=== PATIENT | male | born 1940 | race Caucasian/White ===

== ENCOUNTER → 2018-03-05 16:23 | Outpatient (CLI) | payer MEDICARE, SELFPAY ==
--- NOTE | 2018-03-05 16:30 | XR_ITS ---
XR forearm RT 2V HISTORY: Pain and swelling following injury ITS.REASON: RT FOREARM INJURY ORDERING PHYSICIAN: Tate Ordonez MD PATIENT AGE: 77 years FINDINGS: Prominent soft tissue swelling is present along the dorsal aspect of the forearm consistent with hematoma. No fracture or dislocation. There is mild exostosis along the dorsal aspect of the mid wrist nonspecific. IMPRESSION: Hematoma along the dorsal aspect of the forearm, no acute fracture
== END ==
PROVIDERS: PCP Internal Medicine Adolescent Medicine; Visit Provider Internal Medicine Adolescent Medicine
DX: S59.911A Unspecified injury of right forearm, initial encounter (principal)
CPT/HCPCS: 73090

== ENCOUNTER → 2019-04-23 10:36 | Outpatient (POV) | payer MEDICARE, SELFPAY | PROVIDERS: Visit Provider Dermatology | DX: Z00.00 Encounter for general adult medical examination without abnormal findings (principal) ==

== ENCOUNTER → 2019-05-07 10:36 | Outpatient (POV) | payer MEDICARE, SELFPAY | PROVIDERS: PCP Dermatology; Visit Provider Dermatology | DX: Z00.00 Encounter for general adult medical examination without abnormal findings (principal) ==

== ENCOUNTER → 2019-10-29 08:01 | Outpatient (POV) | payer MEDICARE, SELFPAY | PROVIDERS: PCP Internal Medicine Adolescent Medicine; Visit Provider Dermatology | DX: Z00.00 Encounter for general adult medical examination without abnormal findings (principal) ==

== ENCOUNTER → 2020-01-14 08:55 | Outpatient (POV) | payer MEDICARE, SELFPAY | PROVIDERS: Visit Provider Dermatology | DX: Z00.00 Encounter for general adult medical examination without abnormal findings (principal) ==

== ENCOUNTER → 2020-05-13 15:37 | Outpatient (CLI) | payer MEDICARE, SELFPAY ==
[2020-05-13 18:07] LABS: Coronavirus 19 IgG Antibody Negative (Negative); Coronavirus 19 IgM Antibody Negative (Negative)
== END ==
PROVIDERS: Visit Provider Internal Medicine Gastroenterology
DX: Z01.818 Encounter for other preprocedural examination (principal); Z20.822 Contact with and (suspected) exposure to COVID-19; Z13.810 Encounter for screening for upper gastrointestinal disorder; R10.13 Epigastric pain
CPT/HCPCS: 36415; 86328

== ENCOUNTER 2020-05-15 11:07 | Day surgery (SDC) | payer MEDICARE, SELFPAY ==
[2020-05-13 09:38] VITALS: BMI 29.5
[2020-05-15 11:55] VITALS: BP 166/87; PULSE 61; RESP 22; TEMP 36.6; O2SAT 97
--- NOTE | 2020-05-15 13:04 | P.PCN_ITS ---
[facility] Procedure Note Procedure Note:: Upper Endoscopy Procedure Report: Esophagogastroduodenoscopy with cold biopsies Endoscopost: Oswald Sylvester II, MD Referring Physician: Tate Ordonez M.D. Date of Procedure: May 15, 2020 Equipment: Olympus GIF 180 standard upper endoscope Sedation: MAC sedation Indications: Mr. 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 He had complete remission by February 2006. He has had routine surveillance since then and his last surveillance EGD in April 2014 showed no recurrence. Recently, he has had some intermittent indigestion and dyspepsia which is only occasional. He reports no heartburn, reflux, nausea, bloating or belching. He does have some intermittent constipation. Procedure: Prior to the procedure, a history and physical exam was performed, and patient's medications and allergies were reviewed. The risks, benefits and alternatives of the sedation and procedure were discussed with the patient. All questions were answered and informed consent was obtained. The patient was brought to the procedure room. Patient identification and proposed procedure were verified by the physician and the nurse. The patient was placed in a left lateral decubitus position and the scope was passed under direct vision. Throughout the procedure, the patient's blood pressure, pulse, and oxygen saturations were monitored continuously. The upper GI endoscopy was accomplished without difficulty. The patient tolerated the procedure well. Findings: The scope was passed directly into the upper esophagus and advanced to the third portion of the duodenum. The post bulbar duodenum and duodenal bulb were normal with normal mucosa and conniventes. The scope was withdrawn through a normal duodenal bulb and pylorus into the stomach. There was some very mild reactive gastropathy of the antrum. There was some very mild atrophy of the body and fundus. There was certainly no recurrent lesions or recurrent lymphoma. The remainder of the mucosa of the antrum, body and fundus of the stomach was grossly normal. Upon retroflexion there was no hiatal hernia. 2 biopsies were taken in the antrum and along the lesser curvature for histology to rule out gastritis and/or H pylori. The scope was then withdrawn into the esophagus. There was a serrated Z-line with a single tongue of salmon-colored mucosa that was biopsied to rule out short segment Vaughn's esophagus. There was no evidence of reflux esophagitis or Schatzki's ring. The remainder of the esophageal mucosa was normal. Impression: 1. Nonerosive GERD with single tongue of salmon-colored mucosa biopsied to rule out short segment Vaughn's esophagus 2. Mild linear reactive gastropathy and mild gastric atrophy Plan: I will follow-up the biopsies. The patient does have intermittent indigestion/dyspepsia and I would encourage dietary measures, fiber bowel r egimen daily and FDgard (when necessary).
[2020-05-15 13:06] VITALS: BP 146/76; PULSE 61; RESP 18; TEMP 36.8; O2SAT 96
[2020-05-15 13:16] VITALS: BP 141/79; PULSE 55; RESP 18; TEMP 36.8; O2SAT 97
[2020-05-15 13:26] VITALS: BP 165/81; PULSE 54; RESP 18; TEMP 36.8; O2SAT 97
[2020-05-15 13:36] VITALS: BP 156/79; PULSE 55; RESP 18; TEMP 36.8; O2SAT 98
[2020-05-15 13:55] VITALS: BP 160/82; PULSE 60; RESP 18; TEMP 36.8; O2SAT 98
== END 2020-05-15 14:00 | disposition home or self-care (01) ==
PROVIDERS: PCP Internal Medicine Adolescent Medicine; Visit Provider Internal Medicine Gastroenterology
PROC: 0DJ08ZZ Inspection of Upper Intestinal Tract, Via Natural or Artificial Opening Endoscopic (ICD-10-PCS; CPT 43235; principal; 2020-05-15 12:30)
DX: K21.9 Gastro-esophageal reflux disease without esophagitis (principal); K31.9 Disease of stomach and duodenum, unspecified; K29.40 Chronic atrophic gastritis without bleeding; Z85.72 Personal history of non-Hodgkin lymphomas; I10 Essential (primary) hypertension; E03.9 Hypothyroidism, unspecified; R56.9 Unspecified convulsions; Z79.899 Other long term (current) drug therapy
CPT/HCPCS: 43239; 88305

== ENCOUNTER → 2020-07-14 08:28 | Outpatient (POV) | payer MEDICARE, SELFPAY | PROVIDERS: Visit Provider Dermatology | DX: Z00.00 Encounter for general adult medical examination without abnormal findings (principal) ==

== ENCOUNTER → 2020-10-07 09:40 | Outpatient (CLI) | payer MEDICARE, SELFPAY ==
[2020-10-07 10:12] LABS: Basophils # 0.1 K/mm3 (0-0.2); Basophils % 1.1 % (0.1-2.0); Eosinophils # 0.3 K/mm3 (0.0-0.4); Eosinophils % 4.4 % (0.1-12.0); Hemoglobin 13.1 g/dL (14.1-18.0); Lymphocytes # 2.2 K/mm3 (0.7-4.5); Lymphocytes % 32.3 % (10-50); Mean Corpuscular HGB Conc 34.3 g/dL (31.8-35.4); Mean Corpuscular Hemoglobin 29.6 pg (27.0-31.2); Mean Corpuscular Volume 86.3 fl (80-94); Mean Platelet Volume 8.6 fl (7.4-10.4); Monocytes # 0.4 K/mm3 (0.1-1.0); Monocytes % 5.3 % (1.7-9.3); Neutrophils # 3.9 K/mm3 (1.8-7.8); Neutrophils % 56.9 % (37.0-80.0); Platelet Count 196 K/mm3 (142-424); Red Blood Count 4.41 M/mm3 (4.60-6.20); Red Cell Distribution Width 14.2 % (11.5-17.5); White Blood Count 6.8 K/mm3 (4.8-10.8)
[2020-10-07 11:00] LABS: Alanine Aminotransferase 17 U/L (12-78); Albumin Level 4.2 g/dl (3.5-5.0); Albumin/Globulin Ratio 1.6 (1.1-1.8); Alkaline Phosphatase 134 U/L (38-126); Anion Gap 10.6 mEq/L (5-15); Aspartate Amino Transferase 24 U/L (17-59); Bilirubin,Total 0.4 mg/dl (0.2-1.3); Blood Urea Nitrogen 14 mg/dl (9-20); Calcium 8.9 mg/dl (8.4-10.2); Carbon Dioxide 33 mmol/L (22.0-30.0); Chloride 102 mmol/L (98-107); Chol/HDL Ratio 2.3 (1-3.5); Cholesterol 132 mg/dl (140-200); Estimated Glomerular Filt Rate 81 ml/min (>60); GFR (African American) 98 ML/MIN (>60); Globulin 2.7 g/dL (1.3-3.2); Glucose 123 mg/dl (74-100); HDL Cholesterol 58 mg/dl (40-60); Phenytoin (Dilantin) 16.2 ug/ml (10-20); Potassium 5.6 mmoL/L (3.5-5.1); Sodium 140 mmol/L (136-145); Total Protein,Serum 6.9 g/dl (6.3-8.2); Triglycerides 108 mg/dl (30-150); VLDL Cholesterol 22 mg/dL (0-40)
[2020-10-07 11:28] LABS: Thyroid Stimulating Hormone 2.02 uIU/mL (0.465-4.68)
[2020-10-07 11:50] LABS: Vitamin B12 > 1000 pg/mL (239-931)
== END ==
PROVIDERS: Visit Provider Internal Medicine Adolescent Medicine
DX: G40.909 Epilepsy, unspecified, not intractable, without status epilepticus (principal); G60.9 Hereditary and idiopathic neuropathy, unspecified; E78.5 Hyperlipidemia, unspecified; E53.8 Deficiency of other specified B group vitamins; Z51.81 Encounter for therapeutic drug level monitoring
CPT/HCPCS: 36415; 80053; 80061; 80185; 82607; 84443; 85025

== ENCOUNTER → 2021-01-12 12:07 | Outpatient (POV) | payer MEDICARE, SELFPAY | PROVIDERS: Visit Provider Dermatology | DX: Z00.00 Encounter for general adult medical examination without abnormal findings (principal) ==

== ENCOUNTER → 2021-04-07 10:14 | Outpatient (CLI) | payer MEDICARE, SELFPAY ==
[2021-04-07 11:25] LABS: Anion Gap 9.8 mEq/L (5-15); Blood Urea Nitrogen 15 mg/dl (9-20); Calcium 9.2 mg/dl (8.4-10.2); Carbon Dioxide 33 mmol/L (22.0-30.0); Chloride 100 mmol/L (98-107); Estimated Glomerular Filt Rate 93 ml/min (>60); GFR (African American) 113 ML/MIN (>60); Glucose 126 mg/dl (74-100); Potassium 4.8 mmoL/L (3.5-5.1); Sodium 138 mmol/L (136-145)
== END ==
PROVIDERS: PCP Internal Medicine Adolescent Medicine; Visit Provider Internal Medicine Adolescent Medicine
DX: E87.5 Hyperkalemia (principal)
CPT/HCPCS: 36415; 80048; C9803; U0003; U0005

== ENCOUNTER → 2021-04-07 10:44 | Outpatient (CLI) | payer MEDICARE, SELFPAY | PROVIDERS: Visit Provider Nurse Practitioner | DX: U07.1 COVID-19 (principal) | CPT/HCPCS: C9803; U0003; U0005 ==

== ENCOUNTER → 2021-04-12 10:56 | Outpatient (CLI) | payer MEDICARE, SELFPAY | PROVIDERS: Visit Provider Nurse Practitioner | DX: U07.1 COVID-19 (principal) | CPT/HCPCS: C9803; U0003; U0005 ==

== ENCOUNTER → 2021-09-13 12:33 | Outpatient (CLI) | payer MEDICARE, SELFPAY ==
[2021-09-13 12:52] LABS: Adenovirus,PCR Not Detected (NotDetected); Bordetella Pertussis Not Detected (NotDetected); Chlamydophila Pneumoniae, PCR Not Detected (NotDetected); Coronavirus 19, PCR Not Detected (NotDetected); Coronavirus 229E Not Detected (NotDetected); Coronavirus NL63 Not Detected (NotDetected); Coronavirus OC43 Not Detected (NotDetected); Coronovirus HKU1,PCR Not Detected (NotDetected); Human Metapneumovirus Not Detected (NotDetected); Influenza A, PCR Not Detected (NotDetected); Influenza AH1, 2009 Not Detected (NotDetected); Influenza AH1, PCR Not Detected (NotDetected); Influenza AH3,PCR Not Detected (NotDetected); Influenza B, PCR Not Detected (NotDetected); MANUAL DIFFERENTIAL MANUAL DIFFERENTIAL (MANUAL DIFF); Mycoplasma Pneumoniae, PCR Not Detected (NotDetected); Parainfluenza 1, PCR Not Detected (NotDetected); Parainfluenza 2, PCR Not Detected (NotDetected); Parainfluenza 3, PCR Not Detected (NotDetected); Parainfluenza 4, PCR Not Detected (NotDetected); Respiratory Syncytial Virus Not Detected (NotDetected); Rhinovirus/Enterovirus Not Detected (NotDetected)
--- NOTE | 2021-09-13 13:02 | ECG_ITS ---
APPROVED REPORT Exam: Resting ECG HR:51 bpm ECG Measurements Heart Rate 51 AXES OK 211 P 42 QRSd 92 QRS 29 QT 463 T 44 QTc 439 Conclusion SINUS BRADYCARDIA WITH FIRST DEGREE AV BLOCK ABNORMAL ECG UNCONFIRMED REPORT Electronically signed by : Tate Ordonez MD 09/13/2021 21:42:24
[2021-09-13 13:08] LABS: Basophils # 0.1 K/mm3 (0-0.2); Basophils % 1.8 % (0.1-2.0); Eosinophils # 0.2 K/mm3 (0.0-0.4); Eosinophils % 3.1 % (0.1-12.0); Hematocrit 38.2 % (42.0-52.0); Hemoglobin 12.2 g/dL (14.1-18.0); Lymphocytes % 42.7 % (10-50); Mean Corpuscular Volume 93.9 fl (80-94); Mean Platelet Volume 9.1 fl (7.4-10.4); Monocytes # 0.3 K/mm3 (0.1-1.0); Neutrophils # 2.2 K/mm3 (1.8-7.8); Neutrophils % 46.3 % (37.0-80.0); Platelet Count 236 K/mm3 (142-424); Red Blood Count 4.07 M/mm3 (4.60-6.20); Red Cell Distribution Width 14.1 % (11.5-17.5); White Blood Count 4.7 K/mm3 (4.8-10.8)
[2021-09-13 13:42] LABS: Alanine Aminotransferase 21 U/L (12-78); Albumin Level 3.8 g/dl (3.5-5.0); Albumin/Globulin Ratio 1.5 (1.1-1.8); Alkaline Phosphatase 141 U/L (38-126); Anion Gap 9.6 mEq/L (5-15); Aspartate Amino Transferase 28 U/L (17-59); Blood Urea Nitrogen 18 mg/dl (9-20); Calcium 8.8 mg/dl (8.4-10.2); Carbon Dioxide 32 mmol/L (22.0-30.0); Chloride 101 mmol/L (98-107); Estimated Glomerular Filt Rate 81 ml/min (>60); GFR (African American) 98 ML/MIN (>60); Globulin 2.6 g/dL (1.3-3.2); Glucose 114 mg/dl (74-100); Potassium 4.6 mmoL/L (3.5-5.1); Sodium 138 mmol/L (136-145); Total Protein,Serum 6.4 g/dl (6.3-8.2)
[2021-09-13 13:43] LABS: Bilirubin,Total < 0.1 mg/dl (0.2-1.3)
[2021-09-13 13:44] LABS: Eosinophils % 4 % (0-3); Lymphocytes % 45 % (10-50); Monocytes % 3 % (2-9); Neutrophils % 48 % (42-76); Platelet Estimate Normal; RBC Morphology Normal; Total Cells Counted 100
== END ==
PROVIDERS: PCP Internal Medicine Adolescent Medicine; Visit Provider Student in an Organized Health Care Education/Training Program
DX: H61.23 Impacted cerumen, bilateral (principal); R49.0 Dysphonia; Z01.818 Encounter for other preprocedural examination; Z20.822 Contact with and (suspected) exposure to COVID-19; J38.3 Other diseases of vocal cords
CPT/HCPCS: 36415; 80053; 85007; 85014; 85018; 85048; 85049; 87581; 87632; 87798; 93005; C9803; U0003; U0005

== ENCOUNTER 2021-09-14 06:52 | Day surgery (SDC) | payer MEDICARE, SELFPAY ==
[2021-09-10 13:11] VITALS: BMI 25.8
[2021-09-14] VITALS (9 sets, daily range): BP systolic 138–192; BP diastolic 56–108; PULSE 53–62; RESP 10–18; TEMP 36.1–36.9; O2SAT 94–99
--- NOTE | 2021-09-14 08:53 | HMH.ANESCL ---
[facility] Anesthesia Checklist - Structural Data Admitted From: Home Planned Operative Procedure/s: microlaryngoscopy Consent for Planned Operative Procedure(s) Verified: Yes - Additional verifications Anesthesia Reactions: No - Airway Assessment C-Spine Mobility Assessed: Yes TMJ Mobility Assessed: Yes Dentition: Edentulous - Neurological Assessment Level of Consciousness: Awake, Alert, Appropriate - Anesthesia Plan Anesthesia Risk discussed: Yes Anesthesia Plan: Verified ASA Class: III Anesthesia Type: General [facility] History I have reviewed the patient's past medical history: Yes Medical History: Reports:: Cancer, Seizures Denies:: Diabetes Mellitus Type 1, Diabetes Mellitus Type 2, Internal Pacemaker, MRSA *Have you ever received a pneumonia vaccine?: Yes *Have you received a flu vaccine this season?: Yes Other Medical History: Reports: Hypothyroidism Anesthesia experience/problems:: none Other Surgeries: Yes: Other. No: Pacemaker Amputation: No Fractures: No - *Social History Last grade of school completed: GED Smoking Status: Never smoker Alcohol Intake: never Substance Use Type: denies use *Occupational Status:: retired Housing: house Household Members: spouse *Travel in the last 8 weeks: None Family Hx:: No significant family history
--- NOTE | 2021-09-14 10:48 | HMH.OPNOTE ---
Date of procedure: 09/14/21 Pre-op Diagnosis:: right true vocal cord mass Post-op Diagnosis:: same Procedure performed:: suspension microlaryngoscopy with excision right true vocal cord mass Surgeon:: Kaleb Tejada MD Anesthesia: EBONIE Estimated blood loss (mL): 2 Operative findings:: right TVC mass, stricking edge of anterior 1/3, extending partially deep into trachea, mucosal only with underlying ligament involvement Operative note:: The patient was brought to the OR, laid in a supine position, general anesthesia was induced. Patient was prepped and draped in the usual fashsion. Upper gums were protected with a moist raytech. He was then suspended with the dedo laryngoscope. I was able to get good visualization of the lesion with this scope and cricoid pressure. The microscope was then brought in. He had a right TVC mass, striking edge of anterior 1/3, extending partially deep into trachea, mucosal only with underlying ligament involvement. Sharp dissection was used to make a mucosal incision lateral to the lesion. I then disscted the mucosa and lesion off the underlying ligament. There was no deep/ligament involvement of the mass. It was then excised and sent for pathology. Hemostasis achieved with epi soaked pledgets. These were then removed. He was taken out of suspension and turned over to anesthesia to be awoken. Condition: stable Disposition: PACU Complications:: none
--- NOTE | 2021-09-14 11:06 | HMH.ANESI ---
[facility] Anesthesia Record Part I Intake, IV Amount: 600 Estimated blood loss (mL): 1 Urine output (mL): 0 Blood Pressure: 192/104 SaO2: 99 Pulse Rate: 54 Respiratory Rate: 10 Temperature: 97.0 F Patient is:: Drowsy Stable to PACU at:: 11:02
--- NOTE | 2021-09-16 08:01 | HMH.ANESII ---
[facility] Anesthesia Record Part II Discharge Time: 11:32 Destination: Home PACU nurse assessment reviewed?: Yes Patient Condition:: Good Anesthesia Complications:: None Swallowing reflex intact?: Yes Cyanosis?: No Blood Pressure: 178/84 Pulse Rate: 60 Temperature: 97.0 F Mental Status: Alert & Oriented Pain level:: 0 Nausea and/or vomitting:: None Intake, IV Amount: 0
[2021-09-16 08:02] VITALS: BP 178/84; PULSE 60; TEMP 36.1
== END 2021-09-14 12:05 | disposition home or self-care (01) ==
LOC: OR 06:53
PROVIDERS: PCP Internal Medicine Adolescent Medicine; Visit Provider Student in an Organized Health Care Education/Training Program
PROC: 0CJS8ZZ Inspection of Larynx, Via Natural or Artificial Opening Endoscopic (ICD-10-PCS; principal; 2021-09-14 08:30)
DX: D02.0 Carcinoma in situ of larynx (principal); E03.9 Hypothyroidism, unspecified
CPT/HCPCS: 31512; 88305; 96374; J2405

== ENCOUNTER 2022-04-28 19:56 | Emergency (ER) | payer MEDICARE, SELFPAY ==
[2022-04-28 21:33] VITALS: BP 182/61; PULSE 66; RESP 16; TEMP 37; O2SAT 98; BMI 29.0
--- NOTE | 2022-04-28 21:47 | XR_ITS ---
PROCEDURE INFORMATION: Exam: XR Left Shoulder Exam date and time: 04/28/2022 9:54 PM Age: 81 years old Clinical indication: Injury or trauma; Fall; Blunt trauma (contusions or hematomas); Shoulder; Left; Additional info: Fall with shoulder TECHNIQUE: Imaging protocol: Radiologic exam of the Left shoulder. Views: 2 or more views. COMPARISON: No relevant prior studies available. FINDINGS: Bones/joints: There are small calcifications around the acromioclavicular joint. The acromioclavicular joint appears irregular and the distal clavicle is superior relative to the acromion process. Soft tissues: Hematoma overlies the acromioclavicular joint. IMPRESSION: Findings are suspicious for a grade 3 or grade 4 acromioclavicular joint injury. The distal clavicle and/or acromion process fractures cannot be excluded. Please correlate with point tenderness.
--- NOTE | 2022-04-28 21:49 | XR_ITS ---
PROCEDURE INFORMATION: Exam: XR Left Elbow Exam date and time: 04/28/2022 9:59 PM Age: 81 years old Clinical indication: Injury or trauma; Fall; Blunt trauma (contusions or hematomas); Elbow; Left; Additional info: Fall with pain TECHNIQUE: Imaging protocol: Radiologic exam of the Left elbow. Views: 3 or more views. COMPARISON: CR XR HUMERUS LT 04/28/2022 9:57 PM FINDINGS: Bones/joints: No acute fracture or dislocation. Soft tissues: Normal. IMPRESSION: No acute fracture or dislocation.
--- NOTE | 2022-04-28 21:49 | XR_ITS ---
PROCEDURE INFORMATION: Exam: XR Left Humerus Exam date and time: 04/28/2022 9:57 PM Age: 81 years old Clinical indication: Injury or trauma; Fall; Blunt trauma (contusions or hematomas); Arm, upper; Left; Additional info: Fall with pain TECHNIQUE: Imaging protocol: Radiologic exam of the Left humerus. Views: 2 or more views. COMPARISON: CR XR SHOULDER LT MIN 2V 04/28/2022 9:54 PM FINDINGS: Bones/joints: Normal. Soft tissues: Normal. IMPRESSION: No acute humeral fracture.
[2022-04-28 22:30] VITALS: BP 176/51; PULSE 67; O2SAT 98
--- NOTE | 2022-04-28 23:29 | HMH.EDFALL ---
Discharge Plan Disposition Patient Disposition: Home, Self-Care Chief Complaint: Fall Prescriptions Prescriptions: No Action famotidine 40 mg tablet 40 mg PO DAILY atorvastatin 20 mg tablet 20 mg PO DAILY timolol maleate 0.5 % drops 1 drp OP BID latanoprost 0.005 % drops 1 drp OP DAILY phenytoin sodium extended 100 MG capsule 100 mg PO DAILY levothyroxine 125 MCG tablet 125 mcg PO DAILY cholecalciferol (vitamin D3) 1,000 UNIT capsule 1,000 unit PO DAILY Referrals Follow up/Referrals: Tate Ordonez MD [Primary Care Provider] - See instructions Jone Castano DO [Staff Physician] - See instructions Clinical Impressions Clinical Impression: Acromioclavicular joint injury, Fall Instructions Patient Instructions: DI for AC Joint Separation Discharge ED Provider: Russ (ED)Erwin [facility] General Chief Complaint: Fall Stated Complaint: AO fell on left shoulder @ 1800 Time Seen by Provider: 04/28/22 23:29 Mode of Arrival: Ambulatory Source of Information: Patient, Spouse and Medical Record Limitations: Physical Limitations Description of Symptoms (Recalled from ER Triage Doc. by RN): pt to ED after tripping and falling while walking down a step on his porch. pt fell onto his left side and now reports left shoulder and arm pain with movement. pt also reports hitting their head but denies any LOC History of Present Illness HPI Narrative: trip injury with lt shoulder pain and no loc and no neck pain - no hip pain complaint: fall Onset (ago): hour(s) Fall from: standing Fall witnessed: yes, by family Place fall occurred: home Loss of consciousness: none Prolonged down time: no Symptoms prior to fall: none Context: tripped/slipped Location of injury - extremities: Left: thigh Severity: moderate Related Data Home Medications Medication Instructions Recorded Confirmed cholecalciferol (vitamin D3) 25 1,000 unit PO DAILY Supplement 05/15/19 11/03/21 mcg (1,000 unit) capsule levothyroxine 125 mcg tablet 125 mcg PO DAILY thyroid 05/15/19 11/03/21 phenytoin sodium extended 100 mg 100 mg PO DAILY seizures 05/15/19 11/03/21 capsule atorvastatin 20 mg tablet 20 mg PO DAILY Cholesterol 11/05/20 11/03/21 famotidine 40 mg tablet 40 mg PO DAILY stomach 11/05/20 11/03/21 latanoprost 0.005 % eye drops 1 drp ophthalmic (eye) DAILY 11/03/21 11/03/21 timolol maleate 0.5 % eye drops 1 drp ophthalmic (eye) BID 11/03/21 11/03/21 Allergies Allergy/AdvReac Type Severity Reaction Status Date / Time No Known Allergies Allergy Verified 02/08/22 13:07 [facility] Disclaimer: The information contained in this section may have been updated after the patient was seen, as this information can be updated by other users. 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 Surgical History (Updated 02/08/22 @ 13:22 by ROLANDA Balderrama) History of squamous cell carcinoma excision Social History Smoking Status: Never smoker alcohol intake: never substance use type: denies use current occupational status: retired Travel in the last 8 weeks: None household members: spouse housing: house current occupational exposures/hazards: No caffeine: Yes ROS Obtained: Yes All systems reviewed & no additional complaints except as documented Physical Exam General General appearance: alert Head Head exam: normocephalic Eye Eye exam: Present PERRL and EOMI ENT ENT exam: Present mucous membranes moist Neck Neck exam: Present trachea midline; Absent tenderness Respiratory Respiratory exam: Present normal lung sounds bilaterally; Absent respiratory distress Cardiovascular Cardiovascular exam: Present regular rate, systolic murmur and +S4 Abdominal Exam Abdominal exam: Present soft; Absent te
[2022-04-28 23:44] VITALS: BP 167/78; PULSE 66; RESP 16; TEMP 37; O2SAT 98
== END 2022-04-29 00:04 | disposition home or self-care (01) ==
PROVIDERS: Emergency Provider Emergency Medicine; PCP Internal Medicine Adolescent Medicine
DX: S49.92XA Unspecified injury of left shoulder and upper arm, initial encounter (principal); E03.9 Hypothyroidism, unspecified; R56.9 Unspecified convulsions; W01.0XXA Fall on same level from slipping, tripping and stumbling without subsequent striking against object, initial encounter; Z85.9 Personal history of malignant neoplasm, unspecified
CPT/HCPCS: 73030; 73060; 73080; 99284

== ENCOUNTER → 2022-05-10 09:10 | Outpatient (CLI) | payer MEDICARE, SELFPAY | PROVIDERS: PCP Internal Medicine Adolescent Medicine; Visit Provider Internal Medicine Adolescent Medicine | DX: G40.909 Epilepsy, unspecified, not intractable, without status epilepticus (principal) | CPT/HCPCS: 95816 ==

== ENCOUNTER 2022-11-30 08:00 | Outpatient (RCR) | payer MEDICARE, SELFPAY | END 2022-11-30 08:05 | disposition home or self-care (01) | LOC: PT 08:00 | PROVIDERS: PCP Internal Medicine Adolescent Medicine; Visit Provider Physician Assistant Surgical | DX: S12.401A Unspecified nondisplaced fracture of fifth cervical vertebra, initial encounter for closed fracture (principal) | CPT/HCPCS: 97110; 97112; 97163; 97530 ==

== ENCOUNTER → 2023-03-07 08:23 | Outpatient (CLI) | payer MEDICARE, SELFPAY ==
--- OUTSIDE RECORDS SUMMARY | 2023-03-07 08:26 | XMS_ITS | Patient Health Record ---
Author Name Unknown Organization [facility] Address [address] [place] [address] Care Team Providers Care Service Tech/Welder Name Role Phone Tate Ordonez Primary Care Provider AudeliaNaila mcgowan Unavailable [phone] McMallika Gordon Unavailable [phone] ALLERGIES No Known Allergies RESULTS Component Value Reference Range Notes LIPID PANEL, STANDARD (7600) Reviewed date:07/04/2022 03:38:30 PM Interpretation: Performing Lab:[facility], [facility] [address], [id number] Michael Maxwell Notes/Report: NON-FASTING; NON-FASTING; NON-FASTING; NON-FASTING CHOLESTEROL, TOTAL 179 <200 mg/dL HDL CHOLESTEROL 63 > OR = 40 mg/dL TRIGLYCERIDES 88 <150 mg/dL LDL-CHOLESTEROL 98 Reference range: <100 Desirable range <100 mg/dL for primary prevention; <70 mg/dL for patients with CHD or diabetic patients with > or = 2 CHD risk factors. LDL-C is now calculated using the Marie calculation, which is a validated novel method providing better accuracy than the Friedewald equation in the estimation of LDL-C. Francisco STOKES et al. TREV. 2013;310(19): 6761-0196 (http://education.Mobile-XL.ustyme/faq/F AQ164) CHOL/HDLC RATIO 2.8 <5.0 (calc) NON HDL CHOLESTEROL 116 <130 mg/dL (calc) For patients with diabetes plus 1 major ASCVD risk factor, treating to a non-HDL-C goal of <100 mg/dL (LDL-C of <70 mg/dL) is considered a therapeutic option. COMPREHENSIVE METABOLIC YAMINI Kirby ([id number]) Reviewed date:07/04/2022 03:38:30 PM Int
[2023-03-07 09:00] LABS: Basophils % 0.7 % (0.1-2.0); Eosinophils # 0.2 K/mm3 (0.0-0.4); Eosinophils % 4.2 % (0.1-12.0); Hemoglobin 12.5 g/dL (14.1-18.0); Lymphocytes # 1.8 K/mm3 (0.7-4.5); Lymphocytes % 37.8 % (10-50); Mean Corpuscular HGB Conc 34.8 g/dL (31.8-35.4); Mean Corpuscular Volume 88.9 fl (80-94); Mean Platelet Volume 8.2 fl (7.4-10.4); Monocytes # 0.3 K/mm3 (0.1-1.0); Monocytes % 5.4 % (1.7-9.3); Neutrophils # 2.5 K/mm3 (1.8-7.8); Neutrophils % 51.9 % (37.0-80.0); Platelet Count 182 K/mm3 (142-424); Red Blood Count 4.04 M/mm3 (4.60-6.20); Red Cell Distribution Width 14.2 % (11.5-17.5); White Blood Count 4.8 K/mm3 (4.8-10.8)
[2023-03-07 09:47] LABS: Chloride 104 mmol/L (98-107); Potassium 4.7 mmoL/L (3.5-5.1); Sodium 141 mmol/L (136-145)
[2023-03-07 09:49] LABS: Alanine Aminotransferase 18 U/L (12-78); Aspartate Amino Transferase 26 U/L (17-59); Blood Urea Nitrogen 20 mg/dl (9-20); Estimated Glomerular Filt Rate 72 ml/min (>60); GFR (African American) 87 ML/MIN (>60)
[2023-03-07 09:50] LABS: Albumin Level 4.1 g/dl (3.5-5.0); Albumin/Globulin Ratio 1.6 (1.1-1.8); Alkaline Phosphatase 169 U/L (38-126); Anion Gap 9.7 mEq/L (5-15); Bilirubin,Total 0.3 mg/dl (0.2-1.3); Calcium 8.8 mg/dl (8.4-10.2); Carbon Dioxide 32 mmol/L (22.0-30.0); Globulin 2.6 g/dL (1.3-3.2); Glucose 80 mg/dl (74-100); Total Protein,Serum 6.7 g/dl (6.3-8.2)
[2023-03-07 10:10] LABS: Phenytoin (Dilantin) 7.3 ug/ml (10-20)
== END ==
PROVIDERS: PCP Internal Medicine Adolescent Medicine; Visit Provider Internal Medicine Adolescent Medicine
DX: G40.909 Epilepsy, unspecified, not intractable, without status epilepticus (principal)
CPT/HCPCS: 36415; 80053; 80185; 85025

== ENCOUNTER 2023-03-28 07:25 | Day surgery (SDC) | payer MEDICARE, SELFPAY ==
[2023-03-28] VITALS (7 sets, daily range): BP systolic 130–162; BP diastolic 58–72; PULSE 51–56; RESP 16–18; TEMP 36.1–36.5; O2SAT 97–100
[2023-03-28] MEDS: PHENYLEPHRINE 2.5% OPHTH SOLN 2ML 0.0500000000000000028 ML OP ×3 (07:48→07:52)
[2023-03-28] MEDS: TETRACAINE 0.5% OPTH SOL 15ML OP ×3 (07:48→07:51)
[2023-03-28] MEDS: CYCLOPENTOLATE 2% OPHTH SOLN 2ML BOTTLE OP ×3 (07:48→07:53)
[2023-03-28] MEDS: SODIUM CHLORIDE 0.9% 10ML FLUSH SYRINGE 10 ML IV ×2 (07:50→08:58)
[2023-03-28] MEDS: MIDAZOLAM 2MG/2ML VIAL 1 MG IV (08:58)
[2023-03-28] MEDS: LIDOCAINE 1% PF 2ML AMPULE 2 ML IJ (09:06)
[2023-03-28] MEDS: TIMOLOL 0.5% OPTH SOLN 5ML OP (09:06)
[2023-03-28] MEDS: TOBRAMYCIN/DEX OPTH SUSP 2.5ML OP (09:07)
== END 2023-03-28 09:30 | disposition home or self-care (01) ==
PROVIDERS: PCP Internal Medicine Adolescent Medicine; Visit Provider Ophthalmology
PROC: (CPT 66984; principal; 2023-03-28 09:00)
DX: H25.811 Combined forms of age-related cataract, right eye (principal)
CPT/HCPCS: 66984; V2632

== ENCOUNTER 2023-04-11 08:11 | Day surgery (SDC) | payer MEDICARE, SELFPAY ==
[2023-04-06 10:16] VITALS: BMI 22.8
[2023-04-11] VITALS (7 sets, daily range): BP systolic 147–192; BP diastolic 68–87; PULSE 50–55; RESP 16–18; TEMP 36.1–36.2; O2SAT 98–99
[2023-04-11] MEDS: TETRACAINE 0.5% OPTH SOL 15ML OP ×3 (08:51→09:03)
[2023-04-11] MEDS: CYCLOPENTOLATE 2% OPHTH SOLN 2ML BOTTLE OP ×3 (08:51→09:03)
[2023-04-11] MEDS: SODIUM CHLORIDE 0.9% 10ML FLUSH SYRINGE 10 ML IV (08:52)
[2023-04-11] MEDS: PHENYLEPHRINE 2.5% OPHTH SOLN 2ML 0.0500000000000000028 ML OP ×3 (08:52→09:03)
[2023-04-11] MEDS: MIDAZOLAM 2MG/2ML VIAL 1 MG IV (09:47)
[2023-04-11] MEDS: LIDOCAINE 1% PF 2ML AMPULE 2 ML IJ (09:55)
[2023-04-11] MEDS: TIMOLOL 0.5% OPTH SOLN 5ML OP (09:55)
[2023-04-11] MEDS: TOBRAMYCIN/DEX OPTH SUSP 2.5ML OP (09:56)
== END 2023-04-11 10:15 | disposition home or self-care (01) ==
PROVIDERS: PCP Internal Medicine Adolescent Medicine; Visit Provider Ophthalmology
PROC: (CPT 66984; principal; 2023-04-11 10:30)
DX: H25.812 Combined forms of age-related cataract, left eye (principal)
CPT/HCPCS: 66984; V2632

== ENCOUNTER 2023-07-11 14:41 | Outpatient (POV) | payer MEDICARE, SELFPAY | END 2023-07-11 23:59 | disposition home or self-care (01) | LOC: SC 14:41 | PROVIDERS: PCP Internal Medicine Adolescent Medicine; Visit Provider Dermatology | DX: Z00.00 Encounter for general adult medical examination without abnormal findings (principal) ==

== ENCOUNTER 2024-10-09 20:43 | Emergency (ER) | payer MEDICARE, SELFPAY ==
--- OUTSIDE RECORDS SUMMARY | 2024-06-22 17:30 | XMS_ITS ---
Author Organization [facility] Address [address] [facility] [address] [place] [address] Care Team Providers Care Jelly Maker Name Role Phone José Luis Tate Primary Care Provider Migration, Provider Unavailable Unavailable REASON FOR VISIT [facility] To [facility] Conversion Encounter Medications Medication SIG (Take, Route, [...] Diagnosis [facility] [place] [address] [facility] [address] [place] [address] 06/22/2024 Provider Migration Plan Of Treatment Medication [...] days Next Appt Details Provider Name:Tate Ordonez, 10/14/2024 09:30:00 AM, [address] [facility] [address] [facility], [address], [place], [address], Progress Notes * Yariel GRAHAM VDOB: (83 yo M)Acc No.[id number]:06/22/2024 Patient: Yariel LEWIS V Provider: Mesha Cantor :1940 A ge:83 Y S ex:Male Date:06/22/2024 Address:[address] [place] [address] [address], [place], [id number] Pcp:Tate Ordonez Subjective: * Chief Complaints: * [...] Electronic signature of Jaswinder idenarayan Migration on 10/09/2024 at 08:50 PM EDT Sign off status: Pending * Provider: Mesha Cantor Date: 06/22/2024 Generated for Hollis freeman/Rissa/Greg on: 10/09/2024 08:50 PM EDT
--- NOTE | 2024-10-09 20:47 | [facility].EDGENADL ---
Discharge Plan Disposition Patient Disposition: Home, Self-Care Condition: Good Prescriptions Prescriptions: No Action famotidine 40 mg tablet 40 mg PO DAILY timolol maleate 0.5 % drops 1 drp OP BID latanoprost 0.005 % drops 1 drp OP DAILY losartan 50 mg tablet PO Patient Comments: TAKE ONE TABLET BY MOUTH EVERY DAY mupirocin 2 % ointment topical Patient Comments: APPLY OINTMENT TOPICALLY THREE TIMES DAILY FOR 7 DAYS phenytoin sodium extended 100 MG capsule 100 mg PO TID cholecalciferol (vitamin D3) 1,000 UNIT capsule 1,000 unit PO DAILY levothyroxine 125 mcg tablet 125 mcg PO DAILY Referrals Follow up/Referrals: Tate Ordonez MD [Primary Care Provider, Internal Medicine] - See instructions Activity Restrictions/Add. Instructions Additional Instructions/Restrictions: It does not look like you have a pressure dressing on your ear. Keep the current dressing on your ear for 1 week and if it falls off covered the graft with Vaseline and cover with a Band-Aid. Call the dermatology clinic in the morning to see if you are supposed to be seen in clinic earlier than on November 07 or if they would like to see you in clinic in 1 week. Return to the emergency department for any other acute or worsening symptoms. Clinical Impressions Clinical Impression: Visit for wound care Instructions Patient Instructions: DI for Laceration Repair Print Language Print Language: Slovenian Discharge ED Provider: Angela Arvizu Adult HPI General Chief complaint: Wound/Laceration Stated complaint: wound care on left ear Time Seen by Provider: 10/09/24 20:47 History of Present Illness HPI narrative: Patient is an 83-year-old gentleman who presented to the emergency department with a question about his wound care instructions. Patient had a cancerous lesion removed from his left ear 2 days ago and had a graft placed. Patient states that he is confused about the instructions and how to take care of his wound. Patient states that his next follow-up appointment is on November 07. Patient has kept his dressing in place and patient has no other concerns at this time. Related Data Home Medications ?Medication ?Instructions ?Recorded ?Confirmed cholecalciferol (vitamin D3) 25 1,000 unit PO DAILY Supplement 05/15/19 08/13/24 mcg (1,000 unit) capsule phenytoin sodium extended 100 mg 100 mg PO TID seizures 05/15/19 08/13/24 capsule famotidine 40 mg tablet 40 mg PO DAILY stomach 11/05/20 08/13/24 latanoprost 0.005 % eye drops 1 drp ophthalmic (eye) DAILY 11/03/21 08/13/24 timolol maleate 0.5 % eye drops 1 drp ophthalmic (eye) BID 11/03/21 08/13/24 levothyroxine 125 mcg tablet 125 mcg PO DAILY thyroid 10/19/22 08/13/24 losartan 50 mg tablet mg PO 08/13/24 08/13/24 mupirocin 2 % topical ointment topical 08/13/24 08/13/24 Allergies Allergy/AdvReac Type Severity Reaction Status Date / Time No Known Allergies Allergy Verified 08/13/24 13:24 [facility] Disclaimer: The information contained in this section may have been updated after the patient was seen, as this information can be updated by other users. 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 Hypothyroidism Seizures Cancer Surgical History History of squamous cell carcinoma excision Family History Other No significant family history Social History Smoking Status: Never smoker alcohol intake: never substance use type: denies use current occupational status: retired Travel in the last 8 weeks?: None household members: spouse housing: house current occupational exposures/hazards: No caffeine: No Have you lived/traveled outside [place] in past 30 days?: No Contact w/someone who lives/traveled outside [place] past 30 days?: No Exposure to someone with infectious disease in past 14 days?: No Do you have a fever (greater than 100.4 F or 38 C)?: No Have you tested positive for COVID-19?: No Exposed to someone with COVID-19 in past 14 days?: No Do you have a sore throat?: No Do you have a cough?: No Do you have any weakness?: No Do you have any diarrhea?: No Are you experiencing any unusual bleeding?: No Do you have any muscle aches/pain?: No Do you have any abdominal pain?: No Are you experiencing loss of taste or smell?: No Other Medical History Have you received the Flu Vaccine for this season: Yes Have you received the Pneumonia Vaccine: Yes ROS Obtained: Yes All systems reviewed & no additional complaints except as documented and Yes Systems reviewed as appropriate & no additional complaints except as documented ENT Ears, Nose, Mouth, and Throat: Reports other Comments: Left ear with dressing in place, no associated bleeding or drainage dressing posterior to the ear with no blood or drainage Physical Exam General General appearance: alert and in no apparent distress Head Head exam: atraumatic, normocephalic and normal inspection Eye Eye exam: Present normal appearance, PERRL and EOMI; Absent scleral icterus ENT ENT exam: Present normal exam and normal external ear exam Neck Neck exam: Present normal inspection and full ROM Chest Chest inspection: Present normal inspection and symmetric chest wall rise Respiratory Respiratory exam: Present normal lung sounds bilaterally; Absent respiratory distress or wheezes Cardiovascular Cardiovascular exam: Present regular rate, normal rhythm and normal heart sounds Abdominal Exam Abdominal exam: Present soft and distention; Absent tenderness, guarding or rebound Extremities Exam Extremities exam: Present normal inspection and full ROM Back Exam Back exam: Present normal inspection and full ROM Neurological Exam Neurological exam: Present alert and oriented X3 Psychiatric Psychiatric exam: Present normal affect and normal mood Skin Skin exam: Present warm and dry Medical Decision Making Medical Records Screening: Per USPSTF and CDC recommendations, given the prevalence of disease in our region, it is our hospital?s policy to screen for HIV and viral Hepatitis for all patients aged 18 and over and those with ongoing risk factors. Shan Inquiry Pt receiving controlled substance: No Vital Signs: 10/09/24 20:53 Temperature 98.1 F Temperature Source Oral Pulse Rate [Radial] 69 Respiratory Rate 18 Blood Pressure [Right Radial Artery] 168/68 H Blood Pressure Mean [Right Radial Artery] 101 Blood Pressure Position [Right Radial Artery] Sitting 02 Sat by Pulse Oximetry 95 Oxygen Delivery Method Room Air Lab Data Lab results reviewed: Yes I reviewed the patient's lab results. Medical Decision Narrative: Patient is an 83-year-old gentleman with no past medical history who presented to the emergency department with concern for wound care. On arrival, patient was hemodynamically stable with unremarkable vital signs. Differential includes but not limited to: Wound care, cellulitis, postoperative infection, normal postoperative healing, amongst others. On exam, patient had a dressing in place on the left ear as well as posterior to the left ear that had no associated drainage no blood. Patient had of concerns and questions about the wound care instructions that were given to him. It does not appear the patient has a pressure dressing in place but does appear to have a dressing in place with likely gauze underneath. Per the instructions, I recommended that patient keep the dressing in place for 1 week per the instructions and if it is removed then to cover with Vaseline and a Band-Aid. Patient was advised to call the dermatology clinic in the morning to discuss when he needs to be seen in clinic next. At this time patient was appropriate for discharge home. No signs of infection at this time therefore I did not feel that labs or further workup was indicated at this time. Critical Care Critical Care Time Critical Care Time: No
--- OUTSIDE RECORDS SUMMARY | 2024-10-09 20:50 | XMS_ITS | Patient Health Record ---
Author Organization [facility] Address [address] [place] [address] Care Team Providers Care Administrative Support Assistant Name Role Phone Tate Ordonez Primary Care Provider Migration, Provider Unavailable Unavailable Allergies No Known Allergies Results Component Value Reference Range Notes PHENYTOIN (713) Reviewed date:01/24/2024 02:53:43 PM Interpretation: Performing Lab:[facility] K[address]cc[address], [place]LebhYL[address] Michael Maxwell Notes/Report: NON-FASTING; NON-FASTING; NON-FASTING; NON-FASTING; NON-FAST PHENYTOIN 8.6 10.0-20.0 mg/L PHENYTOIN (713) Reviewed date:04/26/2024 09:21:57 AM Interpretation: Performing Lab:[facility] [address], [place]43PuqtHM[address] Michael Maxwell Notes/Report: FASTING: YES FASTING:YES NON-FASTING; NON-FASTING; NON-FASTING; NON-FASTING; NON-FAST PHENYTOIN 10.5 10.0-20.0 mg/L THYROID PANEL WITH TSH (7444 ) Reviewed date:01/24/2024 02:53:43 PM Interpretation: Performing Lab:[facility] [id number] [place], [place]43ModjLE[address] Michael Maxwell Notes/Report: NON-FASTING; NON-FASTING; NON-FASTING; NON-FASTING; NON-FAST T3 UPTAKE 33 22-35 % T4 (THYROXINE), TOTAL 5.6 4.9-10.5 mcg/dL FREE T4 INDEX (T7) 1.8 1.4-3.8 TSH 0.30 0.40-4.50 mIU/L THYROID PANEL WITH TSH (7444 ) Reviewed date:04/26/2024 09:21:57 AM Interpretation: Performing Lab:[facility], [facility] [address], [place] RjmrDP[address] Michael Maxwell Notes/Report: NON-FASTING; NON-FASTING; NON-FASTING; NON-FASTING; NON-FAST FASTING:YES FASTING: YES T3 UPTAKE 33 22-35 % T4 (THYROXINE), TOTAL 5.6 4.9-10.5 mcg/dL FREE T4 INDEX (T7) 1.8 1.4-3.8 TSH 0.43 0.40-4.50 mIU/L LIPID PANEL, STANDARD (7600) Reviewed date:04/26/2024 09:21:57 AM Interpretation: Performing Lab:[facility], [facility] [id number] [address] [facility], [place] EhwaXP[address] Michael Maxwell Notes/Report: NON-FASTING; NON-FASTING; NON-FASTING; NON-FASTING; NON-FAST FASTING:YES FASTING: YES CHOLESTEROL, TOTAL 200 <200 mg/dL HDL CHOLESTEROL 60 > OR = 40 mg/dL TRIGLYCERIDES 119 <150 mg/dL LDL-CHOLESTEROL 117 Reference range: <100 Desirable range <100 mg/dL for primary prevention; <70 mg/dL for patients with CHD or diabetic patients with > or = 2 CHD risk factors. LDL-C is now calculated using the Francisco-Quan calculation, which is a validated novel method providing better accuracy than the Friedewald equation in the estimation of LDL-C. Francisco STOKES et al. TREV. 2013;310(19): 8749-6404 (http://education.Odeeo.com/faq/LNM330) CHOL/HDLC RATIO 3.3 <5.0 (calc) NON HDL CHOLESTEROL 140 <130 mg/dL (calc) For patients with diabetes plus 1 major ASCVD risk factor, treating to a non-HDL-C goal of <100 mg/dL (LDL-C of <70 mg/dL) is considered a therapeutic option. COMPREHENSIVE METABOLIC YAMINI Kirby (69283) Reviewed date:01/24/2024 02:53:43 PM Interpretation: Performing Lab:[facility] Ytbt7549 [facility] CenterOdepCB[address] Michael Maxwell Notes/Report: NON-FASTING; NON-FASTING; NON-FASTING; NON-FASTING; NON-FAST GLUCOSE 104 65-99 mg/dL Fasting reference interval For someone without known diabetes, a glucose value between 100 and 125 mg/dL is consistent with prediabetes and should be confirmed with a follow-up test. UREA NITROGEN (BUN) 17 7-25 mg/dL CREATININE 1.04 0.70-1.22 mg/dL EGFR 71 > OR = 60 mL/min/1.73m2 BUN/CREATININE RATIO SEE NOTE: 6-22 (calc) Not Reported: BUN and Creatinine are within reference range. SODIUM 142 135-146 mmol/L POTASSIUM 4.8 3.5-5.3 mmol/L CHLORIDE 104 98-110 mmol/L CARBON DIOXIDE 29 20-32 mmol/L CALCIUM 9.4 8.6-10.3 mg/dL PROTEIN, TOTAL 7.3 6.1-8.1 g/dL ALBUMIN 4.1 3.6-5.1 g/dL GLOBULIN 3.2 1.9-3.7 g/dL (calc) ALBUMIN/GLOBULIN RATIO 1.3 1.0-2.5 (calc) BILIRUBIN, TOTAL 0.4 0.2-1.2 mg/dL ALKALINE PHOSPHATASE 155 35-144 U/L AST 15 10-35 U/L ALT 10 9-46 U/L COMPREHENSIVE METABOLIC PANE L (49351) Reviewed date:04/26/2024 09:21:57 AM Interpretation: Performing Lab:[facility] Bdon[address]81 [address] [facility], [facility] CenterLecnUJ[address] Michael Maxwell Notes/Report: NON-FASTING; NON-FASTING; NON-FASTING; NON-FASTING; NON-FAST FASTING:YES FASTING: YES GLUCOSE 102 65-99 mg/dL Fasting reference interval For someone without known diabetes, a glucose value between 100 and 125 mg/dL is consistent with prediabetes and should be confirmed with a follow-up test. UREA NITROGEN (BUN) 16 7-25 mg/dL CREATININE 0.98 0.70-1.22 mg/dL EGFR 77 > OR = 60 mL/min/1.73m2 BUN/CREATININE RATIO SEE NOTE: 6-22 (calc) Not Reported: BUN and Creatinine are within reference range. SODIUM 144 135-146 mmol/L POTASSIUM 4.7 3.5-5.3 mmol/L CHLORIDE 105 98-110 mmol/L CARBON DIOXIDE 26 20-32 mmol/L CALCIUM 9.4 8.6-10.3 mg/dL PROTEIN, TOTAL 7.1 6.1-8.1 g/dL ALBUMIN 4.4 3.6-5.1 g/dL GLOBULIN 2.7 1.9-3.7 g/dL (calc) ALBUMIN/GLOBULIN RATIO 1.6 1.0-2.5 (calc) BILIRUBIN, TOTAL 0.4 0.2-1.2 mg/dL ALKALINE PHOSPHATASE 123 35-144 U/L AST 15 10-35 U/L ALT 7 9-46 U/L CBC (INCLUDES DIFF/PLT) (639 9) Reviewed date:04/26/2024 09:21:57 AM Interpretation: Performing Lab:[facility], [facility] CenterJzkpIK[address] Michael Maxwell Notes/Report: NON-FASTING; NON-FASTING; NON-FASTING; NON-FASTING; NON-FAST FASTING:YES FASTING: YES WHITE BLOOD CELL COUNT 4.9 3.8-10.8 Thousand/ uL RED BLOOD CELL COUNT 4.15 4.20-5.80 Million/uL HEMOGLOBIN 12.4 13.2-17.1 g/dL HEMATOCRIT 36.6 38.5-50.0 % MCV 88.2 80.0-100.0 fL MCH 29.9 27.0-33.0 pg MCHC 33.9 32.0-36.0 g/dL For adults, a slight decrease in the calculated MCHC value (in the range of 30 to 32 g/dL) is most likely not clinically significant; however, it should be interpreted with caution in correlation with other red cell parameters and the patient's clinical condition. RDW 13.9 11.0-15.0 % PLATELET COUNT 193 140-400 Thousand/uL MPV 11.9 7.5-12.5 fL ABSOLUTE NEUTROPHILS 2553 4811-4978 cells/uL ABSOLUTE LYMPHOCYTES 1782 444-2035 cells/uL ABSOLUTE MONOCYTES 328 200-950 cells/uL ABSOLUTE EOSINOPHILS 240 15-500 cells/uL ABSOLUTE BASOPHILS 49 0-200 cells/uL NEUTROPHILS 52.1 LYMPHOCYTES 35.3 MONOCYTES 6.7 EOSINOPHILS 4.9 BASOPHILS 1.0 CBC (INCLUDES DIFF/PLT) (639 9) Reviewed date:01/24/2024 02:53:43 PM Interpretation: Performing Lab:[facility] [address], [facility] CenterQpxwUM[address] Michael Maxwell Notes/Report: NON-FASTING; NON-FASTING; NON-FASTING; NON-FASTING; NON-FAST WHITE BLOOD CELL COUNT 4.5 3.8-10.8 Thousand/ uL RED BLOOD CELL COUNT 4.26 4.20-5.80 Million/uL HEMOGLOBIN 12.5 13.2-17.1 g/dL HEMATOCRIT 38.3 38.5-50.0 % MCV 89.9 80.0-100.0 fL MCH 29.3 27.0-33.0 pg MCHC 32.6 32.0-36.0 g/dL For adults, a slight decrease in the calculated MCHC value (in the range of 30 to 32 g/dL) is most likely not clinically significant; however, it should be interpreted with caution in correlation with other red cell parameters and the patient's clinical condition. RDW 13.7 11.0-15.0 % PLATELET COUNT 192 140-400 Thousand/uL MPV 11.6 7.5-12.5 fL ABSOLUTE NEUTROPHILS 2322 5856-6472 cells/uL ABSOLUTE LYMPHOCYTES 0026 846-4534 cells/uL ABSOLUTE MONOCYTES 311 200-950 cells/uL ABSOLUTE EOSINOPHILS 293 15-500 cells/uL ABSOLUTE BASOPHILS 50 0-200 cells/uL NEUTROPHILS 51.6 LYMPHOCYTES 33.9 MONOCYTES 6.9 EOSINOPHILS 6.5 BASOPHILS 1.1 VITAMIN B12/FOLATE, SERUM PA KALEE (7065) Reviewed date:01/24/2024 02:53:43 PM Interpretation: Performing Lab:[facility] [address], [facility] CenterQzqsIJ[address] Michael Maxwell Notes/Report: NON-FASTING; NON-FASTING; NON-FASTING; NON-FASTING; NON-FAST VITAMIN B12 673 230-1808 pg/mL Please Note: Although the reference range for vitamin B12 is 200-1100 pg/mL, it has been reported that between 5 and 10% of patients with values between 200 and 400 pg/mL may experience neuropsychiatric and hematologic abnormalities due to occult B12 deficiency; less than 1% of patients with values above 400 pg/mL will have symptoms. FOLATE, SERUM 7.7 Reference Range Low: <3.4 Borderline: 3.4-5.4 Normal: >5.4 Medications Medication SIG (Take, Route, Frequency, Duration) Notes Start Date End Date Status Famotidine 40 MG 1 tab(s) orally once a day (at bedtime); Duration: 90 days Active Mupirocin 2 % 1 shayy applied topically 3 times a day; Duration: 7 day(s) 07/22/2024 Active Ibuprofen 800 MG 1 tab(s) orally daily; Duration: 30 days prn 10/05/2023 Active Levothyroxine Sodium 125 MCG 1 tab(s) orally once a day; Duration: 90 days Active TIMOLOL MALEATE (EQV-TIMOPTIC) MALEATE 0.5% 1 GTT IN EACH AFFECTED EYE ONCE A DAY; Duration: 30 DAY(S) *Please review for potential replacement for e-prescription and drug interaction check* Active Losartan Potassium 50 mg TAKE ONE TABLET BY MOUTH EVERY DAY; Duration: 30 Active Vitamin D3 125 MCG (5000 UT) 1 tab(s) orally once a day OTC Active Latanoprost 0.005 % 1 gtt in each eye once a day (in the evening); Duration: 30 day(s) Active Dilantin 100 MG 3 cap(s) orally 2 caps in the morning and 1 cap in the evening; Duration: 30 days Active Immunizations Vaccine Route Administration Date Status Comme nts SHINGRIX IM Intramuscular 11/28/2022 Administered SHINGRIX IM Intramuscular 07/22/2024 Administered Prevnar PCV-20 (Pneumococcal conjugate 20) IM Intramuscular 09/28/2022 Administered Prevnar PCV-13 (Pneumococcal conjugate 13) IM Intramuscular 05/09/2016 Administered Pneumococcal Vaccine Unknown 01/12/2008 Administered Influenza (Fluzone)--Medicare only IM Intramuscular 01/27/2014 Administered Influenza (Fluzone)--Medicare only IM Intramuscular 12/06/2016 Administered Influenza (Fluzone)--Medicare only IM Intramuscular 01/01/2018 Administered Fluzone High Dose IM Intramuscular 01/11/2019 Administered Fluzone High Dose IM Intramuscular 01/07/2021 Administered Fluzone High Dose IM Intramuscular 01/12/2022 Administered Fluzone High Dose IM Intramuscular 11/28/2022 Administered Fluvirin--Influenza vaccine 3+ year Unknown 01/12/2008 Administered Fluvirin (MEDICARE ONLY) IM Intramuscular 12/21/2015 Admin istered Boostrix IM Intramuscular 11/28/2022 Administered Boostrix IM Intramuscular 07/22/2024 Administered Problems Problem Type SNOMED Code ICD Code Onset Dates Problem Status W/U Status Risk Notes Problem Hereditary disorder of nervous system (646674784) Hereditary and idiopathic neuropathy, unspecified (G60.9) Active confirmed Problem Chronic pain syndrom e (673471553) Chronic pain syndrome (G89.4) Active confirmed Problem Vitamin B12 deficiency (966823007) Vitamin B12 deficiency (E53.8) Active confirmed Problem Seizure disorder (740913822) Seizure disorder (G40.909) Active confirmed Problem Hypothyroidism (21771174) Hypothyroidism (E03.9) Active confirmed Problem Essential hypertension (42100572) Essential hypertension (I10) Active confirmed Problem Hyperlipidemia (22645805) Hyperlipemia, idiopathic familial (E78.5) Active confirmed Problem Gastroesophageal reflux disease (481575658) GERD without esophagitis (K21.9) Active confirmed Problem Body mass index 25-2 9 - overweight (798564039) BMI 25.0-25.9,adult (Z68.25) Active confirmed Problem Body mass index 30+ - obesity (166915097) BMI 30.0-30.9,adult (Z68.30) Active confirmed Problem Erectile dysfunction (disorder) (405847217) Erectile dysfunction, unspecified erectile dysfunction type (N52.9) Active confirmed Problem Acquired hypothyroidism (930254733) Acquired hypothyroidism (E03.9) Active confirmed Problem Recurrent falls (835365414) Frequent falls (R29.6) Active confirmed Problem Idiopathic periphera l neuropathy (28492915) Peripheral neuropathy, idiopathic (G60.9) Active confirmed Problem Skin cancer (009756641) Skin cancer (C44.90) Active confirmed Problem Malignant tumor of esophagus (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, 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) Active confirmed Problem Hyperlipoproteinemia (6084526) 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) Active confirmed Vital Signs Heart Rate 60 /min 07/22/2024 Temperature 97.6 degrees Fahrenheit 07/22/2024 Blood pressure diastolic 64 mm Hg 07/22/2024 Height 5 ft 8.5 in in 07/22/2024 Blood pressure systolic 142 mm Hg 07/22/2024 Weight 145.4 lbs 07/22/2024 BMI 21.78 kg/m2 07/22/2024 Encounters Encounter Location Date Provider Diagnosis [facility] [address] [facility] [address] [place], [place] [address] 06/22/2024 Provider Migration [facility] [address] [facility] [address] [place], [place] [address] 10/18/2023 Tate Besson Bradycardia R00.1 ; Hypothyroidism E03.9 ; Peripheral neuropathy, idiopathic G60.9 ; Vitamin B12 deficiency E53.8 ; Seizure disorder G40.909 ; Hyperlipemia, idiopathic familial E78.5 and Routine medical exam Z00.00 [facility] [address] [facility] [address] [place], [place] [address] 01/22/2024 Tate Besson Hypothyroidism E03.9 ; Vitamin B12 deficiency E53.8 ; Seizures R56.9 ; Essential hypertension I10 ; Peripheral neuropathy, idiopathic G60.9 and Routine medical exam Z00.00 [facility] [address] [facility] [address] [place], [place] [address] 04/24/2024 Tate Besson Hypothyroidism E03.9 ; Vitamin B12 deficiency E53.8 ; Seizure disorder G40.909 ; Hyperlipemia, idiopathic familial E78.5 and Essential hypertension I10 [facility] [address] [facility] [address] [place], [place] [address] 07/22/2024 Tate Besson Abrasion of right upper extremity, initial encounter S40.811A ; Hereditary and idiopathic neuropathy, unspecified G60.9 ; Essential hypertension I10 and Encounter for immunization Z23 [facility] [address] [facility] [address] [place], [place] [address] 01/24/2024 Tate Besson [facility] [place] [address] [address] 03/01/2024 Tate Besson [facility] [place] [address] [address] 04/24/2024 Tate Ordonez Assessments Encounter Date Diagnosis (ICD Code) Assessment Notes Treatment Notes Treatment Clinical Notes Section Notes 10/18/2023 Hypothyroidism (ICD-10 - E03.9) -stable labs in August.asymptomat ic. continue with current therapy. 10/18/2023 Bradycardia (ICD-10 - R00.1) - pt is asymptomatic, continues to be physically active without reported issues. - dizziness while getting up has been reported for years despite normal HR, stable throughout. EKG in clinic with HR 49 BPM without blocks or other abnormalities. Normal T- ST waves. - discussed with pt the likelihood of SSS related to age. shared decision making concluded with monitoring given he is asymptomatic. Will contonie with close follow ups and if pt develops symptoms will then refer to cardiology for PPM. 01/22/2024 Vitamin B12 deficiency (ICD-10 - E53.8) Monitor with labs. 01/22/2024 Hypothyroidism (ICD-10 - E03.9) Monitoring with labs today. Patient does not report any symptoms. Continue current regimen with adjustments if needed based on labs. 04/24/2024 Vitamin B12 deficiency (ICD-10 - E53.8) Will order and personally review labs. Follow-up in 3 months. 04/24/2024 Hypothyroidism (ICD-10 - E03.9) WIll order and personally review labs. Continue medication as prescribed. Follow-up in 3 months. 07/22/2024 Hereditary and idiopathic neuropathy, unspecified (ICD-10 - G60.9) Doing well, no falls, very stable. Reviewed labs from 3 months ago. 07/22/2024 Abrasion of right upper extremity, initial encounter (ICD-10 - S40.811A) Discussed wound care, discussed nonstick bandages. Mupirocin for healing and to avoid infection. 07/22/2024 Essential hypertension (ICD-10 - I10) Blood pressure under good control, no changes in plan 04/24/2024 Seizure disorder (ICD-10 - G40.909) No conern for seizures given lack of seizure activity. Continue medication and will re-assess in 3 months. 01/22/2024 Seizures (ICD-10 - R56.9) Continue current medication. 10/18/2023 Peripheral neuropathy, idiopathic (ICD-10 - G60.9) Labs reviewed with patient from last visit. No changes in plans. No falls. Stable with cane 10/18/2023 Vitamin B12 deficiency (ICD-10 - E53.8) B12 levels have normalized. No changes 01/22/2024 Essential hypertension (ICD-10 - I10) Elevated in office today and at home. Start Losartan 50 mg each morning. Continue to monitor at home. 04/24/2024 Hyperlipemia, idiopathic familial (ICD-10 - E78.5) Will order and personally review labs. Follow-up in 3 months. 07/22/2024 Encounter for immunization (ICD-10 - Z23) Shingrix catch-up and Tdap today. 01/22/2024 Peripheral neuropathy, idiopathic (ICD-10 - G60.9) No falls, stable with cane. No changes in plan. 04/24/2024 Essential hypertension (ICD-10 - I10) Refilled medication. Educated on importance of compliance with blood pressure medication. Reach out to office if refills are required at any point. Encourgaed to check BP at home. Will re-check in 3 months. Return sooner if issues arise. 10/18/2023 Seizure disorder (ICD-10 - G40.909) - stable, no episodes of seizure w/n past 12 months. 01/22/2024 Routine medical exam (ICD-10 - Z00.00) Overall doing very nicely. Fall prevention plan in place. Cognitive impairment not noted with 3/3 word recall. is healthcare surrogate. See notes below about healthcare maintenance. Out of range of cancer screening. Up-to-date with vaccines. Not diabetic. 10/18/2023 Hyperlipemia, idiopathic familial (ICD-10 - E78.5) No indication for therapy at this point 10/18/2023 Routine medical exam (ICD-10 - Z00.00) - RSV vaccines due, will send an Rx to be obtained at the pharmacy - otherwise, uptodate with remaining vaccines. will otbain Flu vaccine at next visit - aged out of screening. Spouse is healthcare surrogate. Lifelong non-smoker. Depression screening is negative Plan Of Treatment Pending Test Test Name Order Date Barium Swallow 05/12/2010 Physical Therapy 03/30/2011 Holter Monitor, 48 hour 10/15/2015 H-PHENYTOIN (DILANTIN) 01/12/2008 H-URINE DRUG SCREEN-TRIAGE 01/25/2013 H-FLOW CYTOMETRY 01/08/2013 C-CBC 01/27/2011 C-CBC 05/30/2013 C-CMP 05/30/2013 C-CMP 04/04/2018 C-CMP 07/06/2020 C-LIPID PANEL 07/06/2020 C-LIPID PANEL 01/27/2011 C-LIPID PANEL 05/30/2013 C-TSH 05/30/2013 C-PSA 05/30/2013 C-PSA 01/27/2011 C-VITAMIN B12 07/06/2020 C-THYROID PROFILE 10/02/2017 C-THYROID PROFILE 10/15/2015 C-DILANTIN 04/04/2018 C-DILANTIN 05/30/2013 C-DRUG SCREEN - OPIATES 01/25/2013 M-Vitamin B12 10/07/2020 COMPREHENSIVE METABOLIC PANEL (49422) CBC (INCLUDES DIFF/PLT) (6399) PHENYTOIN (713) 03/06/2023 Future Test Test Name Order Date H-TSH 02/25/2008 C-DRUG SCREEN 12 PANEL 05/10/2016 Next Appt Details Provider Name:Tate Ordonez, 10/14/2024 09:30:00 AM, [address] [facility] [address] [facility], [address], [place], [address], Insurance Providers Payer Name Payer Address Payer Phone Subscriber Number Group Number Insured Name Patient Relationship to Insured Coverage Start Date Coverage End Date [employer] [address] [place] [address] [id number] Yariel Zendejas Self - patient is the insured Medications Administered Medication Instructions Date of Administration Dosage Notes Cyanocobalamin/B-12 Pt's Own Medication 01/09/2013 Cyanocobalamin/B-12 Pt's Own Medication 01/17/2013 Cyanocobalamin/B-12 Pt's Own Medication 02/26/2013 Cyanocobalamin/B-12 Pt's Own Medication 03/25/2013 Cyanocobalamin/B-12 Pt's Own Medication 07/30/2014 1 mL Cyanocobalamin/B-12 Pt's Own Medication 08/13/2014 1 mL Cyanocobalamin/B-12 Pt's Own Medication 09/09/2014 1 mL Medical (General) History Medical History History ICD Code seizures -- normal EEG 06/09 Hypothyroidism neuropathy, chemotherapy lymphoma-large Bcell stomach cancer B12 deficiency Multiple colonoscopies with tubular adenomas- most recently 06/06, Several tubular adenomas on colonoscopy 05/13 Skin cancer Appropriate UDS 01/06 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
--- OUTSIDE RECORDS SUMMARY | 2024-10-09 20:50 | XMS_ITS | Clinical Summary ---
[facility] Address [address] [place] [address] Care Team Providers Care Detective Bowling Alley Name Role Phone Tate Ordonez MD Primary Care Provider [phone] Allergies No known active allergies Medications multivitamin with minerals tablet tablet Take 1 tablet by mouth Daily. Active famotidine (PEPCID) 40 MG tablet Take 1 tablet by mouth Daily. Active levothyroxine (SYNTHROID, LEVOTHROID) 125 MCG tablet Take 1 tablet by mouth Daily. Active latanoprost (XALATAN) 0.005 % ophthalmic solution Administer 1 drop to both eyes Every Night. Active timolol (TIMOPTIC-XR) 0.25 % ophthalmic gel-forming Administer 1 drop to both eyes Every Morning. Active phenytoin ER (DILANTIN) 100 MG capsule Take 1 capsule by mouth 2 (Two) Times a Day for 30 days. 60 capsule 3 Active Active Problems Problem Noted Date Diagnosed Date Closed nondisplaced fracture of seventh cervical vertebra 09/03/2022 Pneumothorax, closed, traumatic 09/03/2022 Closed nondisplaced fracture of fifth cervical vertebra, unspecified fracture morphology, initial encounter 09/03/2022 Immunizations Immunization Administration Dates Next Due 31-influenza Vac Quardvalent Preservativ 018,12/06/2016 COVID-19 (MODERNA) 1st,2nd,3 rd Dose Monovalent 05/27/2020,04/29/2020 COVID-19 (MODERNA) BIVALENT 12+YRS 12/15/2021 COVID-19 (MODERNA) Monovalen t Original Booster 01/13/2021 Fluzone (or Fluarix & Flulav al for VFC) >6mos 12/06/2016 Fluzone High-Dose 65+YRS 01/12/2022,01/07/2021,1 Fluzone High-Dose 65+yrs 12/10/2019 Pneumococcal Conjugate 13-Valent (PCV13) 017 Tdap 09/03/2022 Family History Medical History Relation Name Comments Alzheimer's disease Mother Relation Name Status Comments Mother Social History Tobacco Use Types Packs/Day Years Used Date Smoking Tobacco: Never Smokeless Tobacco: Never Tobacco Cessation:Counseling Given: No Alcohol Use Standard Drinks/Week Comments Never 0 (1 standard drink = 0.6 oz pur e alcohol) AUDIT-C Answer Date Recorded Q1: How often do you have a drink containing alcohol? Never 09/03/2022 Q2: How many drinks containi ng alcohol do you have on a typical day when you are drinking? Patient does not drink Q3: How often do you have si x or more drinks on one occasion? Never 09/03/2022 Abuse Screen Answer Date Recorded Unsafe at Home or Work/School Not on file Feels Threatened by Someone? Not on file Does Anyone Keep You from Co ntacting Others or Doint Things Outside the Home? Not on file 09/04/2023 Physical Sign of Abuse Present Not on file 0 09/04/2023 Housing Stability Answer Date Recorded Current Living Arrangements Not on file 08/19 Potentially Unsafe Housing Conditions Not on ariel e 09/07/2023 Family and Community Support Answer Ovi e Recorded Help with Day-to-Day Activities Not on file 12/30/2022 Lonely or Isolated Not on file 12/30/2022 Employment Answer Date Recorded Do you want help finding or keeping work or a leanna b? Not on file 12/30/2022 Disabilities Answer Date Recorded Concentrating, Remembering, or Making Decisions Difficulty Not on file 09/04/2023 Doing Errands Independently Difficulty Not on fi le 09/04/2023 Education Answer Date Recorded Help with school or training? Not on file Preferred Language Not on file 09/07/2023 Sex and Gender Information Value Date Recorded Sex Assigned at Not on file Legal Sex Male 10:09 AM EDT Gender Identity Not on file Sexual Orientation Not on file Occupation Industry Job Start Date Job End Date Retired Not on file Not on file Not on file Last Filed Vital Signs Vital Sign Reading Time Taken Comments Blood Pressure 151/66 09/05/2022 11:34 AM EDT Pulse 74 09/05/2022 11:34 AM EDT Temperature 36.1 C (96.9 F) 11/02/2022 1:43 PM EDT Respiratory Rate 20 09/05/2022 11:34 AM EDT Oxygen Saturation 98% 09/05/2022 11:34 AM EDT Inhaled Oxygen Concentration - - Weight 73 kg (161 lb) 11/02/2022 1:43 PM EDT Height 175.3 cm (5' 9.02 ) 11/02/2022 1:43 PM ED T Body Mass Index 23.76 11/02/2022 1:43 PM EDT Plan of Treatment Health Maintenance Due Date Last Done Comments ZOSTER VACCINE (1 of 2) 1990 RSV Vaccine - Adults (1 - 1- dose 75+ series) 10/23/2015 ANNUAL WELLNESS VISIT 09/05/2022 COVID-19 Vaccine (5 - 2023-2 5 season) 2023 12/15/2021, 01/13/2021, 05/27/2020, Additional history exists INFLUENZA VACCINE 12/18/2024 01/12/2022, , 12/10/2019, Additional history exists TDAP/TD VACCINES (2 - Td or Tdap) 09/03/2032 023 Pneumococcal Vaccine 50+ Completed 09/28/2022, 04/21 Insurance [facility] MEDIC[facility] ADVANTAGE Advance Directives * No CPR (Do Not Attempt to Resuscitate) (Latest Code Status on File) Date Activated Date Inactivated Comments 09/03/2022 6:31 PM 09/05/2022 7:34 PM Question Answer Comments Code Status (Patient has no pulse and is not breathing): No CPR (Do Not Attempt to Resuscitate) Medical Interventions (Patie nt has pulse or is breathing): Limited Support Medical Intervention Limits: NO intubation (DNI) Level Of Support Discussed With: Patient Release to patient: Routine Release Care Teams Detective Bowling Alley Relationship Specialty Start Date End Date Tate Ordonez MD [id number] [facility] [address] [place] [address] PCP - General Adolescent Medicine 11/02/22
[2024-10-09 20:53] VITALS: BP 168/68; PULSE 69; RESP 18; TEMP 36.7; O2SAT 95; BMI 25.1
[2024-10-09 21:22] VITALS: BP 132/78; PULSE 74; RESP 16; TEMP 36.6; O2SAT 98
== END 2024-10-09 21:23 | disposition home or self-care (01) ==
PROVIDERS: Emergency Provider Student in an Organized Health Care Education/Training Program; PCP Internal Medicine Adolescent Medicine
DX: Z51.89 Encounter for other specified aftercare (principal)
CPT/HCPCS: 99281

== ENCOUNTER 2024-11-25 15:00 | Outpatient (CLI) | payer MEDICARE, SELFPAY ==
--- OUTSIDE RECORDS SUMMARY | 2024-06-22 17:30 | XMS_ITS ---
Author Organization [facility] [place] Address [address] [facility] [address] [place] [address] Care Team Providers Care Training Specialist Name Role Phone José Luis Tate Primary Care Provider Migration, Provider Unavailable Unavailable REASON FOR VISIT [facility] To [facility] Conversion Encounter Medications Medication SIG (Take, Route, Frequency, Duration) Notes Start Date End Date Status Losartan Potassium 50 MG 1 tab(s) orally once a day; Duration: 30 days Active Dilantin 100 MG 3 cap(s) orally 2 caps in the morning and 1 cap in the evening; Duration: 30 days Active TIMOLOL MALEATE (EQV-TIMOPTIC) MALEATE 0.5% 1 GTT IN EACH AFFECTED EYE ONCE A DAY; Duration: 30 DAY(S) *Please review for potential replacement for e-prescription and drug interaction check* Active Latanoprost 0.005 % 1 gtt in each eye once a day (in the evening); Duration: 30 day(s) Active Vitamin D3 125 MCG (5000 UT) 1 tab(s) orally once a day OTC Active Ibuprofen 800 MG 1 tab(s) orally daily; Duration: 30 days 10/05/2023 Active Famotidine 40 MG 1 tab(s) orally once a day (at bedtime); Duration: 90 days Active Levothyroxine Sodium 125 MCG 1 tab(s) orally once a day; Duration: 90 days Active Encounters Encounter Location Date Provider Diagnosis [facility] [place] [address] [facility] [address] [place] [address] 06/22/2024 Provider Migration Plan Of Treatment Medication Medication Name Sig Start Date Stop Date Notes Losartan Potassium 50 MG 1 tab(s) orally once a day; Duration: 30 days Dilantin 100 MG 3 cap(s) orally 2 ca ps in the morning and 1 cap in the evening; Duration: 30 days Famotidine 40 MG 1 tab(s) orally once a day (at bedtime); Duration: 90 days Levothyroxine Sodium 125 MCG 1 tab(s) or ally once a day; Duration: 90 days Next Appt Details Provider Name:Tate Ordonez, 01/20/2025 09:45:00 AM, [address] [facility] [address], [address], [place], [address], Progress Notes * aYriel GRAHAM VDOB: (84 yo M)Acc No.[id number]:06/22/2024 Patient: Yariel LEWIS V Provider: Mesha Cantor :1940 A ge:83 Y S ex:Male Date:06/22/2024 Address:[address] [place] [address] [address] [place], [id number] Pcp:Tate Ordonez Subjective: * Chief Complaints: * 1 . [facility] To [facility] Conversion Encounter. * Medical History: * Medications: T aking TIMOLOL MALEATE (EQV-TIMOPTIC) MALEATE 0.5% SOLUTION 1 GTT IN EACH AFFECTED EYE ONCE A DAY , Notes to Pharmacist: *Please review for potential replacement for e-prescription and drug interaction check*, Taking Latanoprost 0.005 % Solution 1 gtt in each eye once a day (in the evening) , Taking Vitamin D3 125 MCG (5000 UT) Capsule 1 tab(s) orally once a day , Notes to Pharmacist: OTC, Taking Ibuprofen 800 MG Tablet 1 tab(s) orally daily Objective: * Vitals: Assessment: Plan: * Treatment: * * Electronic signature of Jaswinder idenarayan Migration on 11/25/2024 at 03:03 PM EDT Sign off status: Pending * Provider: Mesha Cantor Date: 0 06/22/2024 Generated for Hollis freeman/Rissa/Greg on: 0 11/25/2024 03:03 PM EDT
--- OUTSIDE RECORDS SUMMARY | 2024-10-14 05:30 | XMS_ITS ---
Author Organization [facility] Address [address] [place] [address] Care Team Providers Care Appliance Adjuster Name Role Phone Tate Ordonez Primary Care Provider Allergies No Known Allergies Results Component Value Reference Range Notes THYROID PANEL WITH TSH (7444 ) Reviewed date:10/16/2024 11:47:54 AM Interpretation: Performing Lab:[facility], [facility] [id number] [place] [employer], DietBetterRpduBV[address] Michael Maxwell Notes/Report: NON-FASTING; NON-FASTING; NON-FASTING; NON-FASTING; NON-FAST FASTING:YES FASTING: YES T3 UPTAKE 34 22-35 % T4 (THYROXINE), TOTAL 5.6 4.9-10.5 mcg/dL FREE T4 INDEX (T7) 1.9 1.4-3.8 TSH 0.34 0.40-4.50 mIU/L LIPID PANEL, STANDARD (7600) Reviewed date:10/16/2024 11:47:54 AM Interpretation: Performing Lab:[facility] [id number] [place] [employer], DietBetterUxazNE[address] Michael Maxwell Notes/Report: NON-FASTING; NON-FASTING; NON-FASTING; NON-FASTING; NON-FAST FASTING:YES FASTING: YES CHOLESTEROL, TOTAL 173 <200 mg/dL HDL CHOLESTEROL 57 > OR = 40 mg/dL TRIGLYCERIDES 108 <150 mg/dL LDL-CHOLESTEROL 96 Reference range: <100 Desirable range <100 mg/dL for primary prevention; <70 mg/dL for patients with CHD or diabetic patients with > or = 2 CHD risk factors. LDL-C is now calculated using the Marie calculation, which is a validated novel method providing better accuracy than the Friedewald equation in the estimation of LDL-C. Francisco STOKES et al. TREV. 2013;310(19): 1133-1243 (http://education.Fromlab/faq/XZX047) CHOL/HDLC RATIO 3.0 <5.0 (calc) NON HDL CHOLESTEROL 116 <130 mg/dL (calc) For patients with diabetes plus 1 major ASCVD risk factor, treating to a non-HDL-C goal of <100 mg/dL (LDL-C of <70 mg/dL) is considered a therapeutic option. COMPREHENSIVE METABOLIC PANE Mirta ([id number]) Reviewed date:10/16/2024 11:47:54 AM Interpretation: Performing Lab:[facility], [facility] [id number], Indra McdonaldGfxeJP[address] Michael Maxwell Notes/Report: NON-FASTING; NON-FASTING; NON-FASTING; NON-FASTING; NON-FAST FASTING:YES FASTING: YES GLUCOSE 95 65-99 mg/dL Fasting reference interval UREA NITROGEN (BUN) 21 7-25 mg/dL CREATININE 0.91 0.70-1.22 mg/dL EGFR 84 > OR = 60 mL/min/1.73m2 BUN/CREATININE RATIO SEE NOTE: 6-22 (calc) Not Reported: BUN and Creatinine are within reference range. SODIUM 140 135-146 mmol/L POTASSIUM 4.6 3.5-5.3 mmol/L CHLORIDE 103 98-110 mmol/L CARBON DIOXIDE 33 20-32 mmol/L CALCIUM 9.1 8.6-10.3 mg/dL PROTEIN, TOTAL 6.7 6.1-8.1 g/dL ALBUMIN 4.3 3.6-5.1 g/dL GLOBULIN 2.4 1.9-3.7 g/dL (calc) ALBUMIN/GLOBULIN RATIO 1.8 1.0-2.5 (calc) BILIRUBIN, TOTAL 0.3 0.2-1.2 mg/dL ALKALINE PHOSPHATASE 150 35-144 U/L AST 18 10-35 U/L ALT 14 9-46 U/L CBC (INCLUDES DIFF/PLT) (639 9) Reviewed date:10/16/2024 11:47:54 AM Interpretation: Performing Lab:[facility] [id number] [facility], [place] [facility] HospitalRyzkVU[address] Michael Maxwell Notes/Report: NON-FASTING; NON-FASTING; NON-FASTING; NON-FASTING; NON-FAST FASTING:YES FASTING: YES WHITE BLOOD CELL COUNT 6.4 3.8-10.8 Thousand/ uL RED BLOOD CELL COUNT 4.13 4.20-5.80 Million/uL HEMOGLOBIN 12.0 13.2-17.1 g/dL HEMATOCRIT 38.2 38.5-50.0 % MCV 92.5 80.0-100.0 fL MCH 29.1 27.0-33.0 pg MCHC 31.4 32.0-36.0 g/dL For adults, a slight decrease in the calculated MCHC value (in the range of 30 to 32 g/dL) is most likely not clinically significant; however, it should be interpreted with caution in correlation with other red cell parameters and the patient's clinical condition. RDW 13.8 11.0-15.0 % PLATELET COUNT 204 140-400 Thousand/uL MPV 11.0 7.5-12.5 fL ABSOLUTE NEUTROPHILS 3706 9975-0994 cells/uL ABSOLUTE LYMPHOCYTES 1923 585-1949 cells/uL ABSOLUTE MONOCYTES 390 200-950 cells/uL ABSOLUTE EOSINOPHILS 378 15-500 cells/uL ABSOLUTE BASOPHILS 51 0-200 cells/uL NEUTROPHILS 57.9 LYMPHOCYTES 29.3 MONOCYTES 6.1 EOSINOPHILS 5.9 BASOPHILS 0.8 VITAMIN B12/FOLATE, SERUM [facility] (7065) Reviewed date:10/16/2024 11:47:54 AM Interpretation: Performing Lab:[facility] [id number] [facility], [place] [facility] HospitalGmpfUQ[address] Michael Maxwell Notes/Report: NON-FASTING; NON-FASTING; NON-FASTING; NON-FASTING; NON-FAST FASTING:YES FASTING: YES VITAMIN B12 598 287-0909 pg/mL Please Note: Although the reference range for vitamin B12 is 200-1100 pg/mL, it has been reported that between 5 and 10% of patients with values between 200 and 400 pg/mL may experience neuropsychiatric and hematologic abnormalities due to occult B12 deficiency; less than 1% of patients with values above 400 pg/mL will have symptoms. FOLATE, SERUM 6.2 Reference Range Low: <3.4 Borderline: 3.4-5.4 Normal: >5.4 PHENYTOIN (713) Reviewed date:10/16/2024 11:47:54 AM Interpretation: Performing Lab:[facility], [facility] [address], [place] McdonaldDoylGV[address] Michael Maxwell Notes/Report: NON-FASTING; NON-FASTING; NON-FASTING; NON-FASTING; NON-FAST FASTING:YES FASTING: YES PHENYTOIN 10.9 10.0-20.0 mg/L REASON FOR VISIT Medicare Wellness-non fasting Medications Medication SIG (Take, Route, Frequency, Duration) Notes Start Date End Date Status Mupirocin 2 % 1 shayy applied topica lly 3 times a day; Duration: 7 day(s) 07/22/2024 Active Losartan Potassium 50 mg 1 tab oral matthias y; Duration: 30 days Active TIMOLOL MALEATE (EQV-TIMOPTIC) MALEATE 0.5% 1 GTT IN EACH AFFECTED EYE ONCE A DAY; Duration: 30 DAY(S) Active Latanoprost 0.005 % 1 gtt in each eye on ce a day (in the evening); Duration: 30 day(s) Active Dilantin 100 MG 3 cap(s) orally 2 ca ps in the morning and 1 cap in the evening; Duration: 30 days Active Famotidine 40 MG 1 tab(s) orally once a day (at bedtime); Duration: 90 days Active Levothyroxine Sodium 125 MCG 1 tab(s) or ally once a day; Duration: 90 days Active Vitamin D3 125 MCG (5000 UT) 1 tab(s) or ally once a day OTC Active Ibuprofen 800 MG 1 tab(s) orally matthias y; Duration: 30 days prn 10/05/2023 Active Vital Signs Temperature 97 degrees Fahrenheit 10/14/2024 Heart Rate 68 /min 10/14/2024 Blood pressure systolic 144 mm Hg 10/15/19 25 Blood pressure diastolic 64 mm Hg 025 Height 5 ft 8.5 in in 10/14/2024 Weight 173.4 lbs 10/14/2024 BMI 25.98 kg/m2 10/14/2024 Encounters Encounter Location Date Provider Diagnosis [facility] [address] [place] [address] 10/14/2024 Tate Ordonez Hypothyroidism E03.9 ; Vitamin B12 deficiency E53.8 ; Peripheral neuropathy, idiopathic G60.9 ; Skin cancer C44.90 ; Hyperlipemia, idiopathic familial E78.5 ; Seizure disorder G40.909 and Routine medical exam Z00.00 Assessments Encounter Date Diagnosis (ICD Code) Assessment Notes Treatment Notes Treatment Clinical Notes Section Notes 10/14/2024 Hypothyroidism (ICD-10 - E03.9) He manages his hypothyroidism with levothyroxine. We will check his thyroid panel today in lab. 10/14/2024 Vitamin B12 deficiency (ICD-10 - E53.8) He reports no concerns. We will check his vitamin B12 and folate levels today in lab. 10/14/2024 Peripheral neuropathy, idiopathic (ICD-10 - G60.9) He reports no concerns. We will check his vitamin B12 and folate levels today in lab. 10/14/2024 Skin cancer (ICD-10 - C44.90) We discussed continuing to apply vaseline to the wound and leaving it open to heal. 10/14/2024 Hyperlipemia, idiopathic familial (ICD-10 - E78.5) We will check his lipid panel in lab today. 10/14/2024 Seizure disorder (ICD-10 - G40.909) He manages his seizure disorder with Dilantin. He reports no seizures; we will check a phenytoin level on him today. 10/14/2024 Routine medical exam (ICD-10 - Z00.00) HRA was reviewed in clinic. No concerns were noted. No recent falls, depression screening negative, 3/3 word recall. is healthcare surrogate. Aged out of cancer screening. Up-to-date with vaccines Plan Of Treatment Treatment Notes Assessment Notes Hypothyroidism He manages his hypot hyroidism with levothyroxine. We will check his thyroid panel today in lab. Vitamin B12 deficiency He reports no con cerns. We will check his vitamin B12 and folate levels today in lab. Peripheral neuropathy, idiopathic He rep orts no concerns. We will check his vitamin B12 and folate levels today in lab. Skin cancer We discussed continu ing to apply vaseline to the wound and leaving it open to heal. Hyperlipemia, idiopathic familial We bora l check his lipid panel in lab today. Seizure disorder He manages his seizu re disorder with Dilantin. He reports no seizures; we will check a phenytoin level on him today. Routine medical exam HRA was reviewed in clinic. No concerns were noted. No recent falls, depression screening negative, 05/20 word recall. is healthcare surrogate. Aged out of cancer screening. Up-to-date with vaccines Next Appt Details Follow Up: prn,3 Months, Sandy son: Provider Name:Tate Ordonez, 01/20/2025 09:45:00 AM, [address], [place], [address], Progress Notes * Yariel GRAHAM VDOB: (83 yo M)Acc No.[id number]:10/14/2024 Progress notes Patient: Yariel LEWIS V Provider: Giacomo Ordonez MD :[id number] A ge:83 Y S ex:Male Date:10/14/2024 Address:[address] [place] [address], [id number] Subjective: * Chief Complaints: * 1 . Medicare Wellness-non fasting. * HPI: g en: Mr. Graham presents for a Medicare Wellness. He has no acute concerns at this time. He was seen last week in [place] to remove a skin cancer lesion on his left ear. He has been leaving the wound open and applying vaseline. He has no concerns with falls or his memory. He does not check his BP at home, but has no concerns. We will do bloodwork today. 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 * Surgical History: f x skull repair-steel plate rt side 1968, Skin cancer removed from right upper chest , colonoscopy 05/2019, Skin cancer removed from right hand , Neck Fracture 09/03/22, Cancer removed from Vocal Cords , skin cancer removal from lt ear 09/2024. * Hospitalization/Major Diagno stic Procedure: l ymphoma , esophageal tear 1997, [facility] 09/03-09/05/2022. * Family History: F ather: , Alzheimer. M other: , Alzheimer. P aternal Grand Father: . P aternal Grand Mother: . M aternal Grand Father: . M aternal Grand Mother: . P aternal uncle: . P aternal aunt: . M aternal uncle: . M aternal aunt: alive. S iblings: alive. C hildren: alive, hypertension, diabetes, obesity. 1 brother(s) . 1 son(s) . . * Social History: S moking A re you a:: nonsmoker. R ecreational drug use: no. Exercise: no. Home smoke detector use: yes. Caffeine: yes, occasional soda/1 cup coffee. Living Will: Yes. Alcohol: no. Sexually active: no. Travel outside [place]: no, [place]- war. Occupation: retired. * Medications: T aking TIMOLOL MALEATE (EQV-TIMOPTIC) MALEATE 0.5% SOLUTION 1 GTT IN EACH AFFECTED EYE ONCE A DAY , Taking Latanoprost 0.005 % Solution 1 gtt in each eye once a day (in the evening) , Taking Vitamin D3 125 MCG (5000 UT) Capsule 1 tab(s) orally once a day , Notes to Pharmacist: OTC, Taking Ibuprofen 800 MG Tablet 1 tab(s) orally daily , Notes to Pharmacist: prn, Taking Famotidine 40 MG Tablet 1 tab(s) orally once a day (at bedtime) , Taking Levothyroxine Sodium 125 MCG Tablet 1 tab(s) orally once a day , Taking Dilantin 100 MG Capsule 3 cap(s) orally 2 caps in the morning and 1 cap in the evening , Taking Mupirocin 2 % Ointment 1 shayy applied topically 3 times a day , Taking Losartan Potassium 50 mg Tablet 1 tab oral daily , Medication List reviewed and reconciled with the patient * Allergies: N .K.D.A. Objective: * Vitals: N urse: jl, Pain: 0, Temp: 97, RR: 18, HR: 68, BP: 144/64, Ht: 5 ft 8.5 in, Wt: 173.4, BMI:25.98. * Examination: G eneral Examination: General P leasant and Cooperative, NAD on RA,. Chest: n ormal shape and expansion. Heart: R egular Rate and Rhythm, no murmur, rubs or gallops. Lungs: L CTAB, No wheezes, crackles or rhonchi, Good air movement,. Peripheral pulses: n ormal (2+) bilaterally. ? Assessment: * Assessment: 1. H ypothyroidism - E03.9 (Primary) 2 . V itamin B12 deficiency - E53.8? 3. P eripheral neuropathy, idiopathic - G60.9 4 . S kin cancer - C44.90 5 . H yperlipemia, idiopathic familial - E78.5 6 . Seizure disorder - G40.909 7 . R outine medical exam - Z00.00 ? Plan: * Treatment: Value Reference Range T 3 UPTAKE 34 22-35 - % * T 4 (THYROXINE), TOTAL 5.6 4.9-10.5 - mcg/dL * F REE T4 INDEX (T7) 1.9 1.4-3.8 - * T SH 0.34 L 0.40-4.50 - mIU/L * Jeri Richardson 10/16/2024 11:47:47 AM EDT > Patient informedThis lab was reviewed by Jeri Richardson on 10/16/2024 at 11:47 AM EDT Notes: He manages his hypothyroidism with levothyroxine. We will check his thyroid panel today in lab. ??2.?Vitamin B12 deficiency?LAB: LIPID PANEL, STANDARD (7600)* Value Reference Range T RIGLYCERIDES 108 <150 - mg/dL * C HOLESTEROL, TOTAL 173 <200 - mg/dL * H DL CHOLESTEROL 57 > OR = 40 - mg/dL * L DL-CHOLESTEROL 96 - mg/dL (calc) * C HOL/HDLC RATIO 3.0 <5.0 - (calc) * N ON HDL CHOLESTEROL 116 <130 - mg/dL (calc) * Jeri Richardson 10/16/2024 11:47:47 AM EDT > Patient informedThis lab was reviewed by Jeri Richardson on 10/16/2024 at 11:47 AM EDT ?LAB: COMPREHENSIVE METABOLIC PANEL (59562)* Value Reference Range G LUCOSE 95 65-99 - mg/dL * U SANDY NITROGEN (BUN) 21 7-25 - mg/dL * C REATININE 0.91 0.70-1.22 - mg/dL * B UN/CREATININE RATIO SEE NOTE: 6 - (calc) * S ODIUM 140 135-146 - mmol/L * P OTASSIUM 4.6 3.5-5.3 - mmol/L * C HLORIDE 103 98-110 - mmol/L * C ARBON DIOXIDE 33 H 20-32 - mmol/L * C ALCIUM 9.1 8.6-10.3 - mg/dL * P ROTEIN, TOTAL 6.7 6.1-8.1 - g/dL * A LBUMIN 4.3 3.6-5.1 - g/dL * G LOBULIN 2.4 1.9-3.7 - g/dL (calc ) * A LBUMIN/GLOBULIN RATIO 1.8 1.0-2.5 - (calc) * B ILIRUBIN, TOTAL 0.3 0.2-1.2 - mg/dL * A LKALINE PHOSPHATASE 150 H 35-144 - U/L * A ST 18 10-35 - U/L * A LT 14 9-46 - U/L * E GFR 84 > OR = 60 - mL/min/1 .73m2 * Jeri Richardson 10/16/2024 11:47:47 AM EDT > Patient informedThis lab was reviewed by Jeri Richardson on 10/16/2024 at 11:47 AM EDT ?LAB: CBC (INCLUDES DIFF/PLT) (5964)* Value Reference Range W FRANCES BLOOD CELL COUNT 6.4 3.8-10.8 - Thousan d/uL * R ED BLOOD CELL COUNT 4.13 L 4.20-5.80 - Million/ uL * H EMOGLOBIN 12.0 L 13.2-17.1 - g/dL * H EMATOCRIT 38.2 L 38.5-50.0 - % * M CV 92.5 80.0-100.0 - fL * M CH 29.1 27.0-33.0 - pg * M CHC 31.4 L 32.0-36.0 - g/dL * R DW 13.8 11.0-15.0 - % * P LATELET COUNT 204 140-400 - Thousand/u L * N EUTROPHILS 57.9 - % * A BSOLUTE NEUTROPHILS 3706 9701-3951 - cells/uL * L YMPHOCYTES 29.3 - % * A BSOLUTE LYMPHOCYTES 7895 124-2188 - cells/uL * M ONOCYTES 6.1 - % * A BSOLUTE MONOCYTES 390 200-950 - cells/uL * E OSINOPHILS 5.9 - % * A BSOLUTE EOSINOPHILS 378 15-500 - cells/uL * B ASOPHILS 0.8 - % * A BSOLUTE BASOPHILS 51 0-200 - cells/uL * M PV 11.0 7.5-12.5 - fL * Jeri Richardson 10/16/2024 11:47:47 AM EDT > Patient informedThis lab was reviewed by Jeri Richardson on 10/16/2024 at 11:47 AM EDT ?LAB: VITAMIN B12/FOLATE, SERUM PANEL (7065)* Value Reference Range F OLATE, SERUM 6.2 - ng/mL * V ITAMIN B12 330 069-6456 - pg/mL * Jeri Richardson 10/16/2024 11:47:47 AM EDT > Patient informedThis lab was reviewed by Jeri Richardson on 10/16/2024 at 11:47 AM EDT Notes: He reports no concerns. We will check his vitamin B12 and folate levels today in lab. ? 3.?Peripheral neuropathy, idiopathic?LAB: LIPID PANEL, STANDARD (7600)* Value Reference Range T RIGLYCERIDES 108 <150 - mg/dL * C HOLESTEROL, TOTAL 173 <200 - mg/dL * H DL CHOLESTEROL 57 > OR = 40 - mg/dL * L DL-CHOLESTEROL 96 - mg/dL (calc) * C HOL/HDLC RATIO 3.0 <5.0 - (calc) * N ON HDL CHOLESTEROL 116 <130 - mg/dL (calc) * Jeri Richardson 10/16/2024 11:47:47 AM EDT > Patient informedThis lab was reviewed by Jeir Richardson on 10/16/2024 at 11:47 AM EDT ?LAB: COMPREHENSIVE METABOLIC PANEL (63167)* Value Reference Range G LUCOSE 95 65-99 - mg/dL * U SANDY NITROGEN (BUN) 21 7-25 - mg/dL * C REATININE 0.91 0.70-1.22 - mg/dL * B UN/CREATININE RATIO SEE NOTE: 6-22 - (calc) * S ODIUM 140 135-146 - mmol/L * P OTASSIUM 4.6 3.5-5.3 - mmol/L * C HLORIDE 103 98-110 - mmol/L * C ARBON DIOXIDE 33 H 20-32 - mmol/L * C ALCIUM 9.1 8.6-10.3 - mg/dL * P ROTEIN, TOTAL 6.7 6.1-8.1 - g/dL * A LBUMIN 4.3 3.6-5.1 - g/dL * G LOBULIN 2.4 1.9-3.7 - g/dL (calc ) * A LBUMIN/GLOBULIN RATIO 1.8 1.0-2.5 - (calc) * B ILIRUBIN, TOTAL 0.3 0.2-1.2 - mg/dL * A LKALINE PHOSPHATASE 150 H 35-144 - U/L * A ST 18 10-35 - U/L * A LT 14 9-46 - U/L * E GFR 84 > OR = 60 - mL/min/1 .73m2 * Jeri Richardson 10/16/2024 11:47:47 AM EDT > Patient informedThis lab was reviewed by Jeri Richardson on 10/16/2024 at 11:47 AM EDT ?LAB: CBC (INCLUDES DIFF/PLT) (2033)* Value Reference Range W FRANCES BLOOD CELL COUNT 6.4 3.8-10.8 - Thousan d/uL * R ED BLOOD CELL COUNT 4.13 L 4.20-5.80 - Million/ uL * H EMOGLOBIN 12.0 L 13.2-17.1 - g/dL * H EMATOCRIT 38.2 L 38.5-50.0 - % * M CV 92.5 80.0-100.0 - fL * M CH 29.1 27.0-33.0 - pg * M CHC 31.4 L 32.0-36.0 - g/dL * R DW 13.8 11.0-15.0 - % * P LATELET COUNT 204 140-400 - Thousand/u L * N EUTROPHILS 57.9 - % * A BSOLUTE NEUTROPHILS 3706 9756-4954 - cells/uL * L YMPHOCYTES 29.3 - % * A BSOLUTE LYMPHOCYTES 3714 143-1883 - cells/uL * M ONOCYTES 6.1 - % * A BSOLUTE MONOCYTES 390 200-950 - cells/uL * E OSINOPHILS 5.9 - % * A BSOLUTE EOSINOPHILS 378 15-500 - cells/uL * B ASOPHILS 0.8 - % * A BSOLUTE BASOPHILS 51 0-200 - cells/uL * M PV 11.0 7.5-12.5 - fL * Jeri Richardson 10/16/2024 11:47:47 AM EDT > Patient informedThis lab was reviewed by Jeri Richardson on 10/16/2024 at 11:47 AM EDT ?LAB: VITAMIN B12/FOLATE, SERUM PANEL (7065)* Value Reference Range F OLATE, SERUM 6.2 - ng/mL * V ITAMIN B12 799 755-1108 - pg/mL * Jeri Richardson 10/16/2024 11:47:47 AM EDT > Patient informedThis lab was reviewed by Jeri Richardson on 10/16/2024 at 11:47 AM EDT Notes: He reports no concerns. We will check his vitamin B12 and folate levels today in lab. ? 4.?Skin cancer? Notes: We discussed continuing to apply vaseline to the wound and leaving it open to heal. ? 5.?Hyperlipemia, idiopathic familial? Notes: We will check his lipid panel in lab today. ??6.?Seizure disorder?LAB: PHENYTOIN (713)* Value Reference Range P HENYTOIN 10.9 10.0-20.0 - mg/L * Jeri Richardson 10/16/2024 11:47:47 AM EDT > Patient informedThis lab was reviewed by Jeri Richardson on 10/16/2024 at 11:47 AM EDT Notes: He manages his seizure disorder with Dilantin. He reports no seizures; we will check a phenytoin level on him today. ??7.?Routine medical exam? Notes: HRA was reviewed in clinic. No concerns were noted. No recent falls, depression screening negative, 3/3 word recall. is healthcare surrogate. Aged out of cancer screening. Up-to-date with vaccines?? * Procedure Codes: G 0439 ANNUAL WELLNESS VST; PPS SUBSQT VST, 1170F FUNCTIONAL STATUS ASSESSMENT, 1123F ADVANCED DIRECTIVE - HAS A LIVING WILL, G8420 BMI documented as normal, no follow up required., G8510 NEGATIVE SCREENING F/U NOT REQUIRED, G9903 Pt scrn tbco id as non user, 1036F TOBACCO NON-USER, G8783 NORMAL BP READING DOC F/U NOT RQR * Follow Up: p rn,3 Months * * Sign off status: Completed true * Provider: Giacomo Ordonez MD Date: 0 10/14/2024 Generated for Litai pete/Rissa/eTransmitting on: 0 11/25/2024 03:03 PM EDT History and Physical Notes * HPI (History of Present Illness) Category Sub-Category Detail Notes Category Not es gen Mr. Graham presents for a Medicare Wellness. He has no acute concerns at this time. He was seen last week in [place] to remove a skin cancer lesion on his left ear. He has been leaving the wound open and applying vaseline. He has no concerns with falls or his memory. He does not check his BP at home, but has no concerns. We will do bloodwork today. Examination Category Sub-Category Detail Notes Category Not es General Examination Heart: Regular Rate and Rhythm, no murmur, rubs or gallops Lungs: LCTAB, No wheezes, c rackles or rhonchi, Good air movement, Peripheral pulses: normal (2+) bilatera lly Chest: normal shape and exp ansion General Pleasant and Coopera tive, NAD on RA,
--- OUTSIDE RECORDS SUMMARY | 2024-11-11 12:00 | XMS_ITS ---
Author Organization [facility] Address [address] [place] [address] Care Team Providers Care Pigs Feet Cleaner Name Role Phone Tate Ordonez Primary Care Provider [phone] Allergies No Known Allergies REASON FOR VISIT Right hand pain, tendonitis Medications Medication SIG (Take, Route, Frequency, Duration) Notes Start Date End Date Status Phenytoin Sodium Extended 100 mg TAKE TWO CAPSULES BY MOUTH EVERY MORNING AND TAKE ONE CAPSULE EVERY EVENING; Duration: 30 Active Ibuprofen 800 MG 1 tab(s) orally matthias y; Duration: 30 days prn 10/05/2023 Active Vitamin D3 125 MCG (5000 UT) 1 tab(s) or ally once a day OTC Active Latanoprost 0.005 % 1 gtt in each eye on ce a day (in the evening); Duration: 30 day(s) Active TIMOLOL MALEATE (EQV-TIMOPTIC) MALEATE 0.5% 1 GTT IN EACH AFFECTED EYE ONCE A DAY; Duration: 30 DAY(S) Active Losartan Potassium 50 mg 1 tab oral matthias y; Duration: 30 days Active Mupirocin 2 % 1 shayy applied topica lly 3 times a day; Duration: 7 day(s) 07/22/2024 Active Levothyroxine Sodium 125 MCG 1 tab(s) or ally once a day; Duration: 90 days Active Famotidine 40 MG 1 tab(s) orally once a day (at bedtime); Duration: 90 days Active Problems Problem Type SNOMED Code ICD Code Onset Dates Problem Status W/U Status Risk Notes Problem Localized, primary osteoarthritis of the hand (065410513) Osteoarthritis of right hand, 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) Active confirmed Vital Signs Temperature 97.5 degrees Fahrenheit 11/12/19 Heart Rate 56 /min 11/11/2024 Blood pressure systolic 168 mm Hg 11/12/19 Blood pressure diastolic 74 mm Hg 025 Height 5 ft 8.5 in in 11/11/2024 Weight 173.4 lbs 11/11/2024 BMI 25.98 kg/m2 11/11/2024 Encounters Encounter Location Date Provider Diagnosis [facility] [place] [address] [facility] [address] [facility] [address] [place] [address] 11/11/2024 Tate Ordonez Osteoarthritis of ri ght hand, unspecified osteoarthritis type M19.041 Assessments Encounter Date Diagnosis (ICD Code) Assessment Notes Treatment Notes Treatment Clinical Notes Section Notes 11/11/2024 Osteoarthritis of right hand, unspecified osteoarthritis type (ICD-10 - M19.041) pt to take one 800mg ibuprofen a day as needed for pain Pt instructed to use OTC volteren gel and apply to affected area on hand TID Plan Of Treatment Treatment Notes Assessment Notes Osteoarthritis of right hand , unspecified osteoarthritis type pt to take one 800mg ibuprofen a day as needed for pain Pt instructed to use OTC volteren gel and apply to affected area on hand TID Next Appt Details Follow Up: prn, Reason: Provider Name:Tate Ordonez, 01/20/2025 09:45:00 AM, [address] [facility] [address] [facility], [address], [place], [address], Progress Notes * Yariel GRAHAM VDOB: (84 yo M)Acc No.[id number]:11/11/2024 Progress Notes Patient: Juanita MCCARTNEYYariel Zahraa Provider: Giacomo Ordonez MD :1940 A ge:84 Y S ex:Male Date:11/11/2024 Address:[address] [place] [address], [id number] Subjective: * Chief Complaints: * 1 . Right hand pain, tendonitis. * HPI: g en: G eorge presents today with pain and stiffness in his right hand. He states this pain is constant about a 4-5/10 pain that gets worse with use. He denies taking nsaids, heat or ice on the hand and denies any previous problems with his hand. This stiffness causes him to hardly be able to wring out a washcloth . S tates the hand occasionally tingles but denies numbness. Denies wrist pain or decreased ROM in the right wrist. 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 * Medications: T aking TIMOLOL MALEATE (EQV-TIMOPTIC) [...] tab(s) orally once a day , Taking Mupirocin 2 % Ointment 1 shayy applied topically 3 times a day , Taking Losartan Potassium 50 mg Tablet 1 tab oral daily , Taking Phenytoin Sodium Extended 100 mg Capsule TAKE TWO CAPSULES BY MOUTH EVERY MORNING AND TAKE ONE CAPSULE EVERY EVENING , Medication List reviewed and reconciled with the patient * Allergies: N .K.D.A. Objective: * Vitals: N urse: KJ, Pain: 6, Temp: 97.5, RR: 18, HR: 56, BP: 168/74, Ht: 5 ft 8.5 in, Wt: 173.4, BMI:25.98. * Examination: G eneral Examination: General P leasant and Cooperative, NAD on RA,. ? W rist / Hand: Wrist/Hand: R ight hand has decreased ROM with finger flexion. TTP 4th and 5th MCP joints. Assessment: * Assessment: 1. O steoarthritis of right hand, unspecified osteoarthritis type - M19.041 (Primary) ? Plan: * Treatment: * Follow Up: p rn * * Sign off status: Completed true * Provider: Giacomo Ordonez MD Date: 0 11/11/2024 Generated for Printi pete/Rissa/eTransmitting on: 0 11/25/2024 03:03 PM EDT History and Physical Notes * HPI (History of Present Illness) Category Sub-Category Detail Notes Category Not es gen Saldivar presents today with pain and stiffness in his right hand. He states this pain is constant about a 4-5/10 pain that gets worse with use. He denies taking nsaids, heat or ice on the hand and denies any previous problems with his hand. This stiffness causes him to hardly be able to wring out a washcloth . States the hand occasionally tingles but denies numbness. Denies wrist pain or decreased ROM in the right wrist. Examination Category Sub-Category Detail Notes Category Not es General Examination General Pleasant and Cooperat melissa NAD on RA, Wrist / Hand Wrist/Hand: Right hand has d ecreased ROM with finger flexion. TTP 4th and 5th MCP joints
--- OUTSIDE RECORDS SUMMARY | 2024-11-25 05:33 | XMS_ITS ---
Author Organization [facility] [place] Address [address] [facility] [address] [facility] [address] [place] [address] Care Team Providers Care Medicaid Nurse Name Role Phone Tate Ordonez Primary Care Provider [phone] Medications Medication SIG (Take, Route, Fr equency, Duration) Notes Start Date End Date Status Ibuprofen 800 MG 1 tab(s) orally matthias y; Duration: 30 days prn 10/05/2023 Active Encounters Encounter Location Date Provider Diagnosis [facility] [place] [address] [facility] [address] [facility] [address] [place] [address] 11/25/2024 Tate Shanikaely Right hand pain M79.641 Assessments Encounter Date Diagnosis (ICD Code) Assessment Notes Treatment Notes Treatment Clinical Notes Section Notes 11/25/2024 Right hand pain (ICD-10 - M79.641) Plan Of Treatment Medication Medication Name Sig Start Date Stop Date Notes Ibuprofen 800 MG 1 tab(s) orally daily; Duration: 30 days 10/05/2023 prn Pending Test Test Name Order Date X ray : Hand, Right 11/25/2024 Next Appt Details Provider Name:Tate Ordonez, 01/20/2025 09:45:00 AM, [address] [facility] [address] [facility], [address], [place], [address], Progress Notes * GLADYSYariel VDOB: (84 yo M)Acc No.[id number]:11/25/2024 Patient: Juanita SHERRILLYariel Zahraa :1940 A ge:84 Y S ex:Male [address], [place] [address] * Refills Refill Ibuprofen Tablet, 800 MG, orally, 30 Tablet, 1 tab(s), daily, 30 days, Refills=1 Subjective: * Chief Complaints: * * Medical History: * Surgical History: * Hospitalization/Major Diagno stic Procedure: * Medications: Objective: * Vitals: * Physical Examination: Assessment: * Assessment: 1. R ight hand pain - M79.641 (Primary) Plan: * Treatment: 2.?Others? Refill Ibuprofen Tablet, 800 MG, 1 tab(s), orally, daily, 30 days, 30 Tablet, Refills 1, Notes to Pharmacist: prn.?? * Procedure Codes: * true * Date: Generated for Hollis freeman/Rissa/Philitting on: 0 11/25/2024 03:03 PM EDT
--- OUTSIDE RECORDS SUMMARY | 2024-11-25 15:03 | XMS_ITS | Patient Health Record ---
Author Organization [facility] Address [address] [place] [address] Care Team Providers Care Motorcycle Designer Name Role Phone Tate Ordonez Primary Care Provider [phone] Migration, Provider Unavailable Unavailable Allergies No Known Allergies Results Component Value Reference Range Notes PHENYTOIN (713) Reviewed date:01/24/2024 02:53:43 PM Interpretation: Performing Lab:[facility], [facility] [address], OneCardBotbWG[address] Michael Maxwell Notes/Report: NON-FASTING; NON-FASTING; NON-FASTING; NON-FASTING; NON-FAST PHENYTOIN 8.6 10.0-20.0 mg/L COMPREHENSIVE METABOLIC PANE L (44549) Reviewed date:04/26/2024 09:21:57 AM Interpretation: Performing Lab:[facility] GTI-ASYM [address], OneCardLiicMM[address] Michael Maxwell Notes/Report: NON-FASTING; NON-FASTING; NON-FASTING; NON-FASTING; [...] 15 10-35 U/L ALT 7 9-46 U/L THYROID PANEL WITH TSH (7444 ) Reviewed date:10/16/2024 11:47:54 AM Interpretation: Performing Lab:[facility] GTI-OneCarde[address], HyleteXgrcQU[address] Michael Maxwell Notes/Report: NON-FASTING; NON-FASTING; NON-FASTING; NON-FASTING; NON-FAST FASTING:YES FASTING: YES T3 UPTAKE 34 22-35 % T4 (THYROXINE), TOTAL 5.6 4.9-10.5 mcg/dL FREE T4 INDEX (T7) 1.9 1.4-3.8 TSH 0.34 0.40-4.50 mIU/L THYROID PANEL WITH TSH (7444 ) Reviewed date:01/24/2024 02:53:43 PM Interpretation: Performing Lab:[facility] GTI-OneCarde13[address], HyleteAmtjRF[address] Michael Maxwell Notes/Report: NON-FASTING; NON-FASTING; NON-FASTING; NON-FASTING; NON-FAST T3 UPTAKE 33 22-35 % T4 (THYROXINE), TOTAL 5.6 4.9-10.5 mcg/dL FREE T4 INDEX (T7) 1.8 1.4-3.8 TSH 0.30 0.40-4.50 mIU/L COMPREHENSIVE METABOLIC PANE L (75413) Reviewed date:01/24/2024 02:53:43 PM Interpretation: Performing Lab:[facility] GTI-OneCarde1355 [address], HyleteFdxmMC[address] Michael Maxwell Notes/Report: NON-FASTING; NON-FASTING; NON-FASTING; NON-FASTING; NON-FAST GLUCOSE 104 65-99 mg/dL Fasting reference interval For someone without known diabetes, a glucose value between 100 and 125 mg/dL is consistent with prediabetes and should be confirmed with a follow-up test. UREA NITROGEN (BUN) 17 7-25 mg/dL CREATININE 1.04 0.70-1.22 mg/dL EGFR 71 > OR = 60 mL/min/1.73m2 BUN/CREATININE RATIO SEE NOTE: 09-08 (calc) Not Reported: BUN and Creatinine are [...] 10 9-46 U/L COMPREHENSIVE METABOLIC PANE L (40457) Reviewed date:10/16/2024 11:47:54 AM Interpretation: Performing Lab:[facility], [facility] Tcis2314 [facility], [facility] CenterEvbtZJ[address] Michael Maxwell Notes/Report: NON-FASTING; NON-FASTING; NON-FASTING; NON-FASTING; NON-FAST FASTING:YES FASTING: YES GLUCOSE 95 65-99 mg/dL Fasting reference interval UREA NITROGEN (BUN) 21 7-25 mg/dL CREATININE 0.91 0.70-1.22 mg/dL EGFR 84 > OR = 60 mL/min/1.73m2 BUN/CREATININE RATIO SEE NOTE: - (calc) Not Reported: BUN and Creatinine are [...] 18 10-35 U/L ALT 14 9-46 U/L LIPID PANEL, STANDARD (3360) Reviewed date:10/16/2024 11:47:54 AM Interpretation: Performing Lab:[facility] GTI-OneCarde1355 [address] [facility], OneCardMetlAK[address] Michael Maxwell Notes/Report: NON-FASTING; NON-FASTING; NON-FASTING; NON-FASTING; [...] equation in the estimation of LDL-C. Francisco SS et al. TREV. 2013;310(66): 8821-7091 (http://education.[employer]faq/RHC667) CHOL/HDLC RATIO 3.0 <5.0 (calc) NON HDL CHOLESTEROL 116 <130 mg/dL (calc) For patients with diabetes plus 1 major ASCVD risk factor, treating to a non-HDL-C goal of <100 mg/dL (LDL-C of <70 mg/dL) is considered a therapeutic option. LIPID PANEL, STANDARD (9420) Reviewed date:04/26/2024 09:21:57 AM Interpretation: Performing Lab:[facility], G[facility] III [address], OneCardNecsLN[address] Michael Maxwell Notes/Report: NON-FASTING; NON-FASTING; NON-FASTING; NON-FASTING; [...] equation in the estimation of LDL-C. Francisco SS et al. TREV. 2013;310(23): 2605-2673 (http://education.[employer]/faq/ITC629) CHOL/HDLC RATIO 3.3 <5.0 (calc) NON HDL CHOLESTEROL 140 <130 mg/dL (calc) For patients with diabetes plus 1 major ASCVD risk factor, treating to a non-HDL-C goal of <100 mg/dL (LDL-C of <70 mg/dL) is considered a therapeutic option. THYROID PANEL WITH TSH (7444 ) Reviewed date:04/26/2024 09:21:57 AM Interpretation: Performing Lab:[facility] Xubae[address], XumiiFmlzGG[address] Michael Maxwell Notes/Report: NON-FASTING; NON-FASTING; NON-FASTING; NON-FASTING; NON-FAST FASTING:YES FASTING: YES T3 UPTAKE 33 22-35 % T4 (THYROXINE), TOTAL 5.6 4.9-10.5 mcg/dL FREE T4 INDEX (T7) 1.8 1.4-3.8 TSH 0.43 0.40-4.50 mIU/L PHENYTOIN (713) Reviewed date:10/16/2024 11:47:54 AM Interpretation: Performing Lab:[facility] X[address]ae[address]ar, XumiiObspTA[address] Michael Maxwell Notes/Report: FASTING: YES FASTING:YES NON-FASTING; NON-FASTING; NON-FASTING; NON-FASTING; NON-FAST PHENYTOIN 10.9 10.0-20.0 mg/L PHENYTOIN (713) Reviewed date:04/26/2024 09:21:57 AM Interpretation: Performing Lab:[facility] X[address]ae[address], XumiiVjnhIM[address] Michael Maxwell Notes/Report: NON-FASTING; NON-FASTING; NON-FASTING; NON-FASTING; NON-FAST FASTING:YES FASTING: YES PHENYTOIN 10.5 10.0-20.0 mg/L VITAMIN B12/FOLATE, SERUM LA KALEE (7065) Reviewed date:10/16/2024 11:47:54 AM Interpretation: Performing Lab:[facility], GTI-ASYM III Wtut[address]690 [facility]te[facility], [facility] CenterHglkWG[address] Michael Maxwell Notes/Report: NON-FASTING; NON-FASTING; NON-FASTING; NON-FASTING; NON-FAST FASTING:YES FASTING: YES VITAMIN B12 504 603-3172 pg/mL Please Note: Although the reference range for vitamin B12 is 200-1100 pg/mL, it has been reported that between 5 and 10% of patients with values between 200 and 400 pg/mL may experience neuropsychiatric and hematologic abnormalities due to occult B12 deficiency; less than 1% of patients with values above 400 pg/mL will have symptoms. FOLATE, SERUM 6.2 Low: <3.4 Borderline: 3.4-5.4 Normal: >5.4 Reference Range CBC (INCLUDES DIFF/PLT) (639 9) Reviewed date:10/16/2024 11:47:54 AM Interpretation: Performing Lab:[facility], GTI-ASYM III [address] [facility], [facility] CenterFyabJL[address] Michael Maxwell Notes/Report: NON-FASTING; NON-FASTING; NON-FASTING; NON-FASTING; [...] MPV 11.0 7.5-12.5 fL ABSOLUTE NEUTROPHILS 3706 4904-6227 cells/uL ABSOLUTE LYMPHOCYTES 8672 615-6918 cells/uL ABSOLUTE MONOCYTES 390 200-950 cells/uL ABSOLUTE EOSINOPHILS 378 15-500 cells/uL ABSOLUTE BASOPHILS 51 0-200 cells/uL NEUTROPHILS 57.9 LYMPHOCYTES 29.3 MONOCYTES 6.1 EOSINOPHILS 5.9 BASOPHILS 0.8 CBC (INCLUDES DIFF/PLT) (639 9) Reviewed date:04/26/2024 09:21:57 AM Interpretation: Performing Lab:[facility], GTI-ASYM III [address], OneCardFhybGJ[address] Michael Maxwell Notes/Report: NON-FASTING; NON-FASTING; NON-FASTING; NON-FASTING; [...] MPV 11.9 7.5-12.5 fL ABSOLUTE NEUTROPHILS 2553 8036-9820 cells/uL ABSOLUTE LYMPHOCYTES 5972 660-6043 cells/uL ABSOLUTE MONOCYTES 328 200-950 cells/uL ABSOLUTE EOSINOPHILS 240 15-500 cells/uL ABSOLUTE BASOPHILS 49 0-200 cells/uL NEUTROPHILS 52.1 LYMPHOCYTES 35.3 MONOCYTES 6.7 EOSINOPHILS 4.9 BASOPHILS 1.0 VITAMIN B12/FOLATE, SERUM PA KALEE (9565) Reviewed date:01/24/2024 02:53:43 PM Interpretation: Performing Lab:[facility], [facility] III [address], OneCardXbyfUV[address] Michael Maxwell Notes/Report: NON-FASTING; NON-FASTING; NON-FASTING; NON-FASTING; NON-FAST VITAMIN B12 295 505-6183 pg/mL Please Note: Although the reference range [...] Range Low: <3.4 Borderline: 3.4-5.4 Normal: >5.4 CBC (INCLUDES DIFF/PLT) (639 9) Reviewed date:01/24/2024 02:53:43 PM Interpretation: Performing Lab:[facility], [facility]te[facility], [facility] CenterLcxjCP[address] Michael Maxwell Notes/Report: NON-FASTING; NON-FASTING; NON-FASTING; NON-FASTING; [...] MPV 11.6 7.5-12.5 fL ABSOLUTE NEUTROPHILS 2322 2213-7005 cells/uL ABSOLUTE LYMPHOCYTES 4854 500-0322 cells/uL ABSOLUTE MONOCYTES 311 200-950 cells/uL ABSOLUTE EOSINOPHILS 293 15-500 cells/uL ABSOLUTE BASOPHILS 50 0-200 cells/uL NEUTROPHILS 51.6 LYMPHOCYTES 33.9 MONOCYTES 6.9 EOSINOPHILS 6.5 BASOPHILS 1.1 Medications Medication SIG (Take, Route, Frequency, Duration) Notes Start Date End Date Status Phenytoin Sodium Extended 100 mg TAKE TWO CAPSULES BY MOUTH EVERY MORNING AND TAKE ONE CAPSULE EVERY EVENING; Duration: 30 Active Losartan Potassium 50 mg 1 tab oral matthias y; Duration: 30 days Active Mupirocin 2 % 1 shayy applied topica lly 3 times a day; Duration: 7 day(s) 07/22/2024 Active Ibuprofen 800 MG 1 tab(s) orally matthias y; Duration: 30 days prn 10/05/2023 Active Levothyroxine Sodium 125 MCG 1 tab(s) or ally once a day; Duration: 90 days Active Famotidine 40 MG 1 tab(s) orally once a day (at bedtime); Duration: 90 days Active Vitamin D3 125 MCG (5000 UT) 1 tab(s) or ally once a day OTC Active Latanoprost 0.005 % 1 gtt in each eye on ce a day (in the evening); Duration: 30 day(s) Active TIMOLOL MALEATE (EQV-TIMOPTIC) MALEATE 0.5% 1 GTT IN EACH AFFECTED EYE ONCE A DAY; Duration: 30 DAY(S) Active Immunizations Vaccine Route Administration Date Status Comme nts Arexvy Unknown 10/18/2023 Administered Boostrix IM Intramuscular 11/28/2022 Administered Boostrix IM Intramuscular 07/22/2024 Administered Fluvirin (MEDICARE ONLY) IM Intramuscular 12/21/2015 Admin istered Fluvirin--Influenza vaccine 3+ year Unknown 01/12/2008 Administered Fluzone High Dose IM Intramuscular 01/11/2019 Administered Fluzone High Dose IM Intramuscular 01/07/2021 Administered Fluzone High Dose IM Intramuscular 01/12/2022 Administered Fluzone High Dose IM Intramuscular 11/28/2022 Administered Influenza (Fluzone)--Medicare only IM Intramuscular 01/27/2014 Administered Influenza (Fluzone)--Medicare only IM Intramuscular 12/06/2016 Administered Influenza (Fluzone)--Medicare only IM Intramuscular 01/01/2018 Administered Pneumococcal Vaccine Unknown 01/12/2008 Administered Prevnar PCV-13 (Pneumococcal conjugate 13) IM Intramuscular 05/09/2016 Administered Prevnar PCV-20 (Pneumococcal conjugate 20) IM Intramuscular 09/28/2022 Administered SHINGRIX IM Intramuscular 11/28/2022 Administered SHINGRIX IM Intramuscular 07/22/2024 Administered Problems Problem Type SNOMED Code ICD Code Onset Dates Problem Status W/U Status Risk Notes Problem Hereditary disorder of nervous system (830262852) Hereditary and idiopathic neuropathy, unspecified (G60.9) Active confirmed Problem Chronic pain syndrom e (443184063) Chronic pain syndrome (G89.4) Active confirmed Problem Vitamin B12 deficiency (984504130) Vitamin B12 deficiency (E53.8) Active confirmed Problem Seizure disorder (656771009) Seizure disorder (G40.909) Active confirmed Problem Hypothyroidism (13672533) Hypothyroidism (E03.9) Active confirmed Problem Essential hypertension (60686529) Essential hypertension (I10) Active confirmed Problem Hyperlipidemia (79942860) Hyperlipemia, idiopathic familial (E78.5) Active confirmed Problem Gastroesophageal reflux disease (194274800) GERD without esophagitis (K21.9) Active confirmed Problem Body mass index 25-2 9 - overweight (376563564) BMI 25.0-25.9,adult (Z68.25) Active confirmed Problem Body mass index 30+ - obesity (595850594) BMI 30.0-30.9,adult (Z68.30) Active confirmed Problem Erectile dysfunction (disorder) (690220428) Erectile dysfunction, unspecified erectile dysfunction type (N52.9) Active confirmed Problem Acquired hypothyroidism (975955413) Acquired hypothyroidism (E03.9) Active confirmed Problem Recurrent falls (261972058) Frequent falls (R29.6) Active confirmed Problem Idiopathic periphera l neuropathy (59366655) Peripheral neuropathy, idiopathic (G60.9) Active confirmed Problem Skin cancer (830051746) Skin cancer (C44.90) Active confirmed Problem Malignant tumor of esophagus (540808406) Malignant neoplasm of esophagus, 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) Active confirmed Problem Hyperlipoproteinemia (5145401) 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) Active confirmed Problem Localized, primary osteoarthritis of the hand (044173697) Osteoarthritis of right hand, 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) Active confirmed Vital Signs Heart Rate 56 /min 11/11/2024 Temperature 97.5 degrees Fahrenheit 11/11/2024 Blood pressure diastolic 74 mm Hg 11/11/2024 Height 5 ft 8.5 in in 11/11/2024 Blood pressure systolic 168 mm Hg 11/11/2024 Weight 173.4 lbs 11/11/2024 BMI 25.98 kg/m2 11/11/2024 Encounters Encounter Location Date Provider Diagnosis [facility] [address] [facility] [address] [place], [place] [address] 06/22/2024 Provider Migration [facility] [address] [facility] [address] [place], [place] [address] 01/22/2024 Tate Besson Hypothyroidism E03.9 ; Vitamin B12 deficiency E53.8 ; Seizures R56.9 ; Essential hypertension I10 ; Peripheral neuropathy, idiopathic G60.9 and Routine medical exam Z00.00 [facility] [address] [facility] [address] [place], [place] [address] 04/24/2024 Tate Besson Hypothyroidism E03.9 ; Vitamin B12 deficiency E53.8 ; Seizure disorder G40.909 ; Hyperlipemia, idiopathic familial E78.5 and Essential hypertension I10 [facility] [address] [facility] [address] [place], [place] [address] 07/22/2024 Tate Besson Abrasion of right upper extremity, initial encounter S40.811A ; Hereditary and idiopathic neuropathy, unspecified G60.9 ; Essential hypertension I10 and Encounter for immunization Z23 [facility] [address] [facility] [address] [place], [place] [address] 10/14/2024 Tate Besson Hypothyroidism E03.9 ; Vitamin B12 deficiency E53.8 ; Peripheral neuropathy, idiopathic G60.9 ; Skin cancer C44.90 ; Hyperlipemia, idiopathic familial E78.5 ; Seizure disorder G40.909 and Routine medical exam Z00.00 [facility] [address] [facility] [address] [place], [place] [address] 11/11/2024 Tate Besson Osteoarthritis of right hand, unspecified osteoarthritis type M19.041 [facility] [address] [facility] [address] [place] [address] 01/24/2024 Tate Besson [facility] [address] [address] 03/01/2024 Tate Besson [facility] [address] [address] 04/24/2024 Tate Besson [facility] [address] [facility] [address] [place] [address] 11/25/2024 Tate Ordonez Right hand pain M79.641 Assessments Encounter Date Diagnosis (ICD Code) Assessment Notes Treatment Notes Treatment Clinical Notes Section Notes 01/22/2024 Vitamin B12 deficiency (ICD-10 - E53.8) [...] medication as prescribed. Follow-up in 3 months. 10/14/2024 Vitamin B12 deficiency (ICD-10 - E53.8) He reports no concerns. We will check his vitamin B12 and folate levels today in lab. 10/14/2024 Hypothyroidism (ICD-10 - E03.9) He manages his hypothyroidism with levothyroxine. We will check his thyroid panel today in lab. 11/11/2024 Osteoarthritis of right hand, unspecified osteoarthritis type (ICD-10 - M19.041) pt to take one 800mg ibuprofen a day as needed for pain Pt instructed to use OTC volteren gel and apply to affected area on hand TID 11/25/2024 Right hand pain (ICD-10 - M79.641) 07/22/2024 Hereditary and idiopathic neuropathy, unspecified (ICD-10 - G60.9) Doing well, no falls, very stable. Reviewed labs from 3 months ago. 07/22/2024 Abrasion of right upper extremity, initial encounter (ICD-10 - S40.811A) Discussed wound care, discussed nonstick bandages. Mupirocin for healing and to avoid infection. 07/22/2024 Essential hypertension (ICD-10 - I10) Blood pressure under good control, no changes in plan 10/14/2024 Peripheral neuropathy, idiopathic (ICD-10 - G60.9) He reports no concerns. We will check his vitamin B12 and folate levels today in lab. 04/24/2024 Seizure disorder (ICD-10 - G40.909) No conern for seizures given lack of seizure activity. Continue medication and will re-assess in 3 months. 01/22/2024 Seizures (ICD-10 - R56.9) Continue current medication. 01/22/2024 Essential hypertension (ICD-10 - I10) Elevated in office today and at home. Start Losartan 50 mg each morning. Continue to monitor at home. 10/14/2024 Skin cancer (ICD-10 - C44.90) We discussed continuing to apply vaseline to the wound and leaving it open to heal. 04/24/2024 Hyperlipemia, idiopathic familial (ICD-10 - E78.5) Will order and personally review labs. Follow-up in 3 months. 07/22/2024 Encounter for immunization (ICD-10 - Z23) Shingrix catch-up and Tdap today. 10/14/2024 Hyperlipemia, idiopathic familial (ICD-10 - E78.5) We will check his lipid panel in lab today. 01/22/2024 Peripheral neuropathy, idiopathic (ICD-10 - G60.9) No falls, stable with cane. No changes in plan. 04/24/2024 Essential hypertension (ICD-10 - I10) Refilled medication. Educated on importance of compliance with blood pressure medication. Reach out to office if refills are required at any point. Encourgaed to check BP at home. Will re-check in 3 months. Return sooner if issues arise. 10/14/2024 Seizure disorder (ICD-10 - G40.909) He manages his seizure disorder with Dilantin. He reports no seizures; we will check a phenytoin level on him today. 01/22/2024 Routine medical exam (ICD-10 - Z00.00) Overall doing very nicely. Fall prevention plan in place. Cognitive impairment not noted with 3/3 word recall. is healthcare surrogate. See notes below about healthcare maintenance. Out of range of cancer screening. Up-to-date with vaccines. Not diabetic. 10/14/2024 Routine medical exam (ICD-10 - Z00.00) HRA was reviewed in clinic. No concerns were noted. No recent falls, depression screening negative, 3/3 word recall. is healthcare surrogate. Aged out of cancer screening. Up-to-date with vaccines Plan Of Treatment Pending Test Test Name Order Date Barium Swallow 05/12/2010 X ray : Hand, Right 11/25/2024 Physical Therapy 03/30/2011 Holter Monitor, 48 hour 10/15/2015 H-PHENYTOIN (DILANTIN) 01/12/2008 H-URINE DRUG SCREEN-TRIAGE 01/25/2013 H-FLOW CYTOMETRY 01/08/2013 C-CBC 01/27/2011 C-CBC 05/30/2013 C-CMP 04/04/2018 C-CMP 05/30/2013 C-CMP 07/06/2020 C-LIPID PANEL 07/06/2020 C-LIPID PANEL 01/27/2011 C-LIPID PANEL 05/30/2013 C-TSH 05/30/2013 C-PSA 05/30/2013 C-PSA 01/27/2011 C-VITAMIN B12 07/06/2020 C-THYROID PROFILE 10/15/2015 C-THYROID PROFILE 10/02/2017 C-DILANTIN 04/04/2018 C-DILANTIN 05/30/2013 C-DRUG SCREEN - OPIATES 01/25/2013 M-Vitamin B12 10/07/2020 COMPREHENSIVE METABOLIC PANEL (01345) CBC (INCLUDES DIFF/PLT) (6399) PHENYTOIN (713) 03/06/2023 Future Test Test Name Order Date H-TSH 02/25/2008 C-DRUG SCREEN 12 PANEL 05/10/2016 Next Appt Details Provider Name:Tate Ordonez, 01/20/2025 09:45:00 AM, [address] [facility] [address] [facility], [address], [place], [address], Insurance Providers Payer Name Payer Address Payer Phone Subscriber Number Group Number Insured Name Patient Relationship to Insured Coverage Start Date Coverage End Date [employer] [address] [place] [address] [id number] Yariel Zendejas Self - patient is the [...] History Medical History History ICD Code seizures - normal EEG 06/09 Hypothyroidism neuropathy, chemotherapy lymphoma-large [...] Fracture 09/03/22 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
--- OUTSIDE RECORDS SUMMARY | 2024-11-25 15:03 | XMS_ITS | Clinical Summary ---
[facility] Address [address] [place] [address] Care Team Providers Care Environmental Quality Analyst Name Role Phone Tate Ordonez MD Primary Care Provider [phone] Allergies No known active allergies Medications multivitamin [...] WELLNESS VISIT 09/05/2022 COVID-19 Vaccine (5 - 2024-2 6 season) 2024 12/15/2021, 01/13/2021, 05/27/2020, Additional history exists INFLUENZA VACCINE 12/18/2024 01/12/2022, , 12/10/2019, Additional history exists TDAP/TD VACCINES (2 - Td or Tdap) 09/03/2032 023 Pneumococcal Vaccine 50+ Completed 09/28/2022, 04/21 Insurance [facility] MEDIC[facility] ADVANTAGE Advance Directives * No [...] Release to patient: Routine Release Care Teams Environmental Quality Analyst Relationship Specialty Start Date End Date Tate Ordonez MD [address] [facility] [address] [place] [address] PCP - General Adolescent Medicine 11/02/22
--- NOTE | 2024-11-25 15:04 | XR_ITS ---
FINAL REPORT CLINICAL HISTORY: RIGHT HAND PAIN COMPARISON: None FINDINGS: AP, lateral and oblique views of the right hand were obtained. There is no prior exam for comparison. There is no acute fracture or dislocation. Mild multijoint degenerative changes are present, most pronounced at the PIP joints. The soft tissues are normal. Normal bony mineralization is present. No focal erosions are identified. IMPRESSION: No acute osseous abnormality of the right hand. Mild multijoint degenerative changes as described. Reviewed, Interpreted and Dictated by Tawana Costa MD Transcribed by Annelise Mercado Authenticated and [facility]
== END 2024-11-25 23:59 | disposition home or self-care (01) ==
LOC: RAD 15:00
PROVIDERS: PCP Internal Medicine Adolescent Medicine; Visit Provider Internal Medicine Adolescent Medicine
DX: M19.041 Primary osteoarthritis, right hand (principal)
CPT/HCPCS: 73130